=== PATIENT | male | born 1960 | race American Indian/Alaskan Native ===

== ENCOUNTER 2016-08-30 01:38 | Emergency (ER) | payer SELFPAY ==
[2016-08-30 02:52] LABS: Hematocrit 39.9 % (35.5-45.6); Mean Corpuscular HGB Conc 33 % (32-34); Mean Corpuscular Hemoglobin 28 pg (28-32); Mean Corpuscular Volume 85 fl (84-94); Platelet Count 251 K/mm3 (140-440); White Blood Count 4.6 K/mm3 (4.5-11.0)
[2016-08-30 03:03] LABS: Anion Gap 21 mmol/L; Blood Urea Nitrogen 7 mg/dL (9-20); Calcium 8.4 mg/dL (8.4-10.2); Carbon Dioxide 21 mmol/L (22-30); Chloride 100.2 mmol/L (98-107); Glucose 264 mg/dL (75-100); Potassium 3.9 mmol/L (3.6-5.0); Sodium 138 mmol/L (137-145)
[2016-08-30 03:17] LABS: Bilirubin,Urine NEG (Negative); Blood,Urine NEG (Negative); Ketones,Urine NEG (Negative); Leukocyte Esterase,Urine NEG (Negative); Nitrite,Urine NEG (Negative); Protein,Urine <15 mg/dL mg/dL (Negative); Urobilinogen,Urine < 2.0 mg/dL (<2.0)
--- NOTE | 2016-08-30 03:23 | Emergency Department Report ---
HPI - General Chief Complaint: Syncope Time Seen by Provider: 08/30/16 02:47 - HPI HPI: This is a 56-year-old Afro-[place] male presents the emergency department from work after having a syncopal episode. 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 Patient did hit his head on a concrete floor. The patient does not recall the event. It is unknown how long the patient was unconscious. However the patient currently has no focal complaints. He has a history of diabetes, hypertension. He denies any tobacco or illicit drug use or abuse. He did not take anything and was not given anything for his symptoms prior to presentation. No recent travel or sick contacts at home. He does not have a primary care doctor. ED Past Medical Hx - Past Medical History Previous Medical History?: Yes Hx Hypertension: Yes Hx Diabetes: Yes - Surgical History Past Surgical History?: No - Social History Smoking Status: Never Smoker Substance Use Type: Alcohol - Medications Home Medications: Home Medications Medication Instructions Recorded Confirmed Last Taken Type Allopurinol [Zyloprim] 300 mg PO QDAY 08/30/16 08/30/16 Unknown History Naproxen [Naprosyn] 500 mg PO BID 08/30/16 08/30/16 Unknown History metFORMIN [Glucophage] 500 mg PO BID 08/30/16 08/30/16 Unknown History ED Review of Systems ROS: Stated complaint: SYNCOPE Other details as noted in HPI Comment: All other systems reviewed and negative Constitutional: denies: chills, fever Eyes: denies: eye pain, eye discharge, vision change ENT: denies: ear pain, throat pain Respiratory: denies: cough, shortness of breath, wheezing Cardiovascular: syncope. denies: chest pain Gastrointestinal: denies: abdominal pain, nausea, diarrhea Genitourinary: denies: urgency, dysuria Musculoskeletal: denies: back pain, joint swelling, arthralgia Skin: denies: rash, lesions Neurological: denies: headache, weakness, paresthesias Physical Exam - Physical Exam Vital Signs: Vital Signs 08/30/16 08/30/16 01:38 02:40 Temperature 98.5 F Pulse Rate 84 Respiratory 15 20 Rate Blood Pressure 170/96 [Left] O2 Sat by Pulse 95 98 Oximetry Physical Exam: GENERAL: The patient is well-developed well-nourished. HEENT: Normocephalic. Atraumatic. Extraocular motions are intact. Patient has moist mucous membranes. Pupils equal reactive to light bilaterally. No nystagmus. NECK: Supple. Trachea is midline. CHEST/LUNGS: Clear to auscultation. There is no respiratory distress noted. HEART/CARDIOVASCULAR: Regular. There is no tachycardia. There is no gallop rub or murmur. ABDOMEN: Abdomen is soft, nontender. Patient has normal bowel sounds. There is no abdominal distention. SKIN: Skin is warm and dry. NEURO: The patient is awake, alert, and oriented. The patient is cooperative. The patient has no focal neurologic deficits. The patient has normal speech. Cranial nerves II through XII grossly intact. MUSCULOSKELETAL: There is no tenderness or deformity. There is no limitation range of motion. There is no evidence of acute injury. Muscle strength 5 out of 5 upper and lower extremity bilaterally. ED Course Vital Signs 08/30/16 08/30/16 01:38 02:40 Temperature 98.5 F Pulse Rate 84 Respiratory 15 20 Rate Blood Pressure 170/96 [Left] O2 Sat by Pulse 95 98 Oximetry ED Medical Decision Making - Lab Data Result diagrams: 08/30/16 02:30 08/30/16 02:30 - EKG Data -: EKG Interpreted by Nc EKG shows normal: sinus rhythm, axis, intervals, QRS complexes, ST-T waves Rate: normal - EKG Data When compared to previous EKG there are: previous EKG unavailable Interpretation: normal EKG - Radiology Data Radiology results: report reviewed MCT of the head does not show any acute process including no hemorrhage, mass, shift, diffuse edema or skull fracture. - Medical Decision Making 56-year-old male presents the emergency department after a syncopal episode at work earlier in the day. Patient is been awake and alert throughout his ED course without any physical complaints. Vital signs stable throughout his ED course. Labs are mostly unremarkable other than some hyperglycemia but the patient's son appeared to be in DKA or HHNK. Patient had some alcohol on board at 0.08 but that is basically within the legal limit and the patient is now sober. EKG does not show any signs of ST elevation [place] or dysrhythmia. CT of the head does not show any bleed, shift, mass or any acute process. Patient was reevaluated multiple times for multiple hours and remained stable. He has been seen ambulatory in the emergency department and appears stable and doing so. He'll be discharged home to follow up with primary care. He will return to the ER for any worsening of symptoms or any acute distress. - Differential Diagnosis vasovagal, orthostatic hypotension, intoxication, TIA Critical Care Time: No Critical care attestation.: If time is entered above; I have spent that time in minutes in the direct care of this critically ill patient, excluding procedure time. ED Disposition Clinical Impression: Hyperglycemia Hypertension Qualifiers: Hypertension type: essential hypertension Qualified Code(s): I10 - Essential ( primary) hypertension Syncope Qualifiers: Syncope type: unspecified Qualified Code(s): R55 - Syncope and collapse Disposition: DISCHARGED TO HOME OR SELFCARE Is pt being admited?: No Condition: Stable Instructions: Hypertension (ED), Syncope (ED), Diabetic Hyperglycemia (ED) Additional Instructions: Please follow-up with your primary care doctor in the next few days. Return to the emergency department with any further episodes of passing out, or any acute distress. Referrals: PRIMARY MD MALLORIE [Primary Care Provider] - 3-5 Days BRIDGETTE FISHER MD [Staff Physician] - 3-5 Days [facility] [Outside] - 3-5 Days Time of Disposition: 06:16
[2016-08-30] MEDS ORDERED: CATAPRES PO ONE (03:29)
[2016-08-30 04:01] LABS: Anisocytosis 1+; Basophils % (Manual) 0 % (0.0-1.8); Blastocytes % (Manual) 0 %; Diff Status Complete; Eosinophils % (Manual) 0 % (0.0-4.3); Stomatocytes Few; Target Cells Rare
[2016-08-30 05:54] VITALS: BP 151/91
--- NOTE | 2016-08-30 06:03 | Cat Scan Report ---
FINAL REPORT EXAM: CT HEAD/BRAIN WO CON HISTORY: Fell and hit head TECHNIQUE: CT of the head was performed. No intravenous contrast was administered. PRIORS: None. FINDINGS: There is no evidence of intracranial hemorrhage. There is no edema, mass effect or midline shift. There are no abnormal extra-axial fluid collections. The ventricles are appropriate for brain volume. There is no skull fracture seen. The visualized aspects of the sinuses are clear. IMPRESSION: There is no acute intracranial abnormality identified.
== END 2016-08-30 06:43 | disposition home or self-care (01) ==
LOC: ED 01:38
DX: E11.65 Type 2 diabetes mellitus with hyperglycemia (principal); I10 Essential (primary) hypertension; R55 Syncope and collapse
CPT/HCPCS: 36415; 70450; 80048; 81001; 84484; 85007; 85025; 93005; 93010; 99285; G0480; 80320

== ENCOUNTER 2016-11-15 20:49 | Emergency (ER) | payer SELFPAY ==
[2016-11-15 21:12] VITALS: BP 137/77
[2016-11-15 21:32] LABS: Hematocrit 37.1 % (35.5-45.6); Hemoglobin 12.1 gm/dl (11.8-15.2); Mean Corpuscular HGB Conc 33 % (32-34); Mean Corpuscular Hemoglobin 27 pg (28-32); Mean Corpuscular Volume 83 fl (84-94); Platelet Count 295 K/mm3 (140-440); Red Blood Count 4.47 M/mm3 (3.65-5.03); Red Cell Distribution Width 13.7 % (13.2-15.2); White Blood Count 9.5 K/mm3 (4.5-11.0)
[2016-11-15 21:48] LABS: Anion Gap 18 mmol/L; BUN/Creatinine Ratio 8.88; Blood Urea Nitrogen 8 mg/dL (9-20); Calcium 8.4 mg/dL (8.4-10.2); Carbon Dioxide 27 mmol/L (22-30); Chloride 90.8 mmol/L (98-107); Glucose 244 mg/dL (75-100); Potassium 3.1 mmol/L (3.6-5.0); Sodium 133 mmol/L (137-145)
[2016-11-15 22:31] LABS: Basophils % (Manual) 0 % (0.0-1.8); Blastocytes % (Manual) 0 %; Eosinophils % (Manual) 0 % (0.0-4.3)
[2016-11-15 22:32] LABS: Anisocytosis 1+; Diff Status Complete; Hypochromasia 1+; Platelet Estimate Consistent w Auto
--- NOTE | 2016-11-20 11:05 | ED Elopement Review ---
ED Pt Elopement review - Results review Lab results: Laboratory Tests 11/15/16 11/15/16 11/15/16 21:09 21:17 21:17 WBC 9.5 RBC 4.47 Hgb 12.1 Hct 37.1 MCV 83 L MCH 27 L MCHC 33 RDW 13.7 Plt Count 295 [place] % (Auto) Professor Of Architecture Add Manual Diff Complete Total Counted 100 Seg Neuts % (Manual) 45.0 Band Neutrophils % 22.0 Lymphocytes % (Manual) 17.0 Reactive Lymphs % (Man) 1.0 Monocytes % (Manual) 15.0 H Eosinophils % (Manual) 0 Basophils % (Manual) 0 Metamyelocytes % 0 Myelocytes % 0 Promyelocytes % 0 Blast Cells % 0 Nucleated RBC % Not Reportable Seg Neutrophils # Man 4.3 Band Neutrophils # 2.1 Lymphocytes # (Manual) 1.6 Abs React Lymphs (Man) 0.1 Monocytes # (Manual) 1.4 H Eosinophils # (Manual) 0.0 Basophils # (Manual) 0.0 Metamyelocytes # 0.0 Myelocytes # 0.0 Promyelocytes # 0.0 Blast Cells # 0.0 WBC Morphology Not Reportable Hypersegmented Neuts Not Reportable Hyposegmented Neuts Not Reportable Hypogranular Neuts Not Reportable Smudge Cells Not Reportable Toxic Granulation Not Reportable Toxic Vacuolation Not Reportable Dohle Bodies Not Reportable Pelger-Huet Anomaly Not Reportable Jordan Rods Not Reportable Platelet Estimate Consistent w auto Clumped Platelets Not Reportable Plt Clumps, EDTA Not Reportable Large Platelets Not Reportable Giant Platelets Not Reportable Platelet Satelliting Not Reportable Plt Morphology Comment Not Reportable RBC Morphology Not Reportable Dimorphic RBCs Not Reportable Polychromasia Not Reportable Hypochromasia 1+ Poikilocytosis Not Reportable Anisocytosis 1+ Microcytosis Not Reportable Macrocytosis Not Reportable Spherocytes Not Reportable Pappenheimer Bodies Not Reportable Sickle Cells Not Reportable Target Cells Not Reportable Tear Drop Cells Not Reportable Ovalocytes Not Reportable Helmet Cells Not Reportable [place] Bodies Not Reportable [place] Rings Not Reportable Kayla Cells Not Reportable Bite Cells Not Reportable Crenated Cell Not Reportable Elliptocytes Not Reportable Acanthocytes (Spur) Not Reportable Rouleaux Not Reportable Hemoglobin C Crystals Not Reportable Schistocytes Not Reportable Malaria parasites Not Reportable Blair Bodies Not Reportable Hem Pathologist Commnt No Sodium 133 L Potassium 3.1 L Chloride 90.8 L Carbon Dioxide 27 Anion Gap 18 BUN 8 L Creatinine 0.9 Estimated GFR > 60 BUN/Creatinine Ratio 8.88 Glucose 244 H POC Glucose 263 H Calcium 8.4 - Call Back decision Pt Call Back Decision: No action required
== END 2016-11-15 21:30 | disposition left against medical advice (07) ==
LOC: ED 20:49
DX: R11.2 Nausea with vomiting, unspecified (principal); R19.7 Diarrhea, unspecified; Z53.21 Procedure and treatment not carried out due to patient leaving prior to being seen by health care provider
CPT/HCPCS: 36415; 80048; 82962; 85007; 85025

== ENCOUNTER 2019-01-14 00:27 | Emergency (ER) | payer SELFPAY ==
[2019-01-14] MEDS ORDERED: NACL 0.9% 1000 ML 1,000 ML IV ONE (01:11)
--- NOTE | 2019-01-14 01:13 | Emergency Department Report ---
ED General Adult HPI - General Chief complaint: Syncope Stated complaint: AMS Time Seen by Provider: 01/14/19 01:01 Source: patient, EMS (ems notes not available at time of chart dictation), RN notes reviewed Mode of arrival: Stretcher Limitations: No Limitations - History of Present Illness Initial comments: This is a pleasant 58-year-old gentleman. The patient is not known to this provider previously. The patient states his primary care doctor is Dr. Mehta. Reports a past medical history of gout and diabetes. The patient was brought to the hospital by EMS for complaint of syncope. Patient states he was outside, doing heavy lifting for work, which he typically does not do, in the warm weather, when he had a painless unprovoked episode of loss of consciousness. Prior to the event, he denied chest pain, shortness of breath, extremity w eakness, numbness and all symptoms. He is now back to his baseline. The patient denies DVT, pulmonary embolus risk factors. He denies all complaints, and he denies physical pain. He states "I think I just got overheated working outside." He further reiterates that he typically does not work in the outdoors in the extreme heat. -: Sudden Severity scale (0 -10): 0 Consistency: now resolved Improves with: none Worsens with: none Associated Symptoms: denies other symptoms, syncope - Related Data Home Medications Medication Instructions Recorded Confirmed Last Taken Allopurinol [Zyloprim] 300 mg PO QDAY 08/30/16 08/30/16 Unknown Naproxen [Naprosyn] 500 mg PO BID 08/30/16 08/30/16 Unknown metFORMIN [Glucophage] 500 mg PO BID 08/30/16 08/30/16 Unknown Allergies Allergy/AdvReac Type Severity Reaction Status Date / Time No Known Allergies Allergy Verified 01/14/19 03:36 ED Review of Systems ROS: Stated complaint: AMS Other details as noted in HPI Constitutional: denies: fever, malaise ENT: denies: epistaxis Respiratory: denies: cough Cardiovascular: syncope. denies: chest pain Gastrointestinal: denies: abdominal pain Genitourinary: denies: dysuria Musculoskeletal: denies: back pain Skin: denies: lesions Neurological: denies: headache, weakness ED Past Medical Hx - Past Medical History Previous Medical History?: Yes Hx Hypertension: Yes Hx Heart Attack/AMI: Yes (2016) Hx Diabetes: Yes Hx of Cancer: Yes (Prostate and pancreatic) - Surgical History Past Surgical History?: No - Social History Smoking Status: Former Smoker - Medications Home Medications: Home Medications Medication Instructions Recorded Confirmed Last Taken Type Allopurinol [Zyloprim] 300 mg PO QDAY 08/30/16 08/30/16 Unknown History Naproxen [Naprosyn] 500 mg PO BID 08/30/16 08/30/16 Unknown History metFORMIN [Glucophage] 500 mg PO BID 08/30/16 08/30/16 Unknown History ED Physical Exam - General Limitations: No Limitations General appearance: alert, in no apparent distress - Head Head exam: Present: atraumatic, normocephalic - Eye Eye exam: Present: normal appearance, PERRL, EOMI, other (visual acuity intact to finger counting, color perception, reading at a close distance). Absent: nystagmus - ENT ENT exam: Present: normal exam, normal orophraynx, mucous membranes moist, normal external ear exam - Neck Neck exam: Present: normal inspection, full ROM. Absent: tenderness, meningismus - Respiratory Respiratory exam: Present: normal lung sounds bilaterally. Absent: respiratory distress, wheezes, rales, rhonchi, stridor, chest wall tenderness, accessory muscle use, decreased breath sounds, prolonged expiratory - Cardiovascular Cardiovascular Exam: Present: regular rate, normal rhythm, normal heart sounds. Absent: bradycardia, tachycardia, irregular rhythm, systolic murmur, diastolic murmur, rubs, gallop - GI/Abdominal GI/Abdominal exam: Present: soft. Absent: distended, tenderness, guarding, rebound, rigid, pulsatile mass - Rectal Rectal exam: Present: deferred - Extremities Exam Extremities exam: Present: normal inspection, full ROM, other (2+ pulses noted in the bilateral upper, lower extremities. Compartments soft. No long bony tenderness. The pelvis is stable.). Absent: tenderness, pedal edema, joint swelling, calf tenderness - Back Exam Back exam: Present: normal inspection, full ROM. Absent: tenderness, CVA tenderness (R), CVA tenderness (L), paraspinal tenderness, vertebral tenderness - Neurological Exam Neurological exam: Present: alert, oriented X3, normal gait (there is no past pointing. There is normal [id number]. There is no pronator drift. There is negative Romberg examination.), other (Extraocular movements intact. Tongue midline. No facial droop. Facial sensation intact to light touch in the V1, V2, V3 distribution bilaterally. 5 and 5 strength in 4 extremities.. Sensation is intact to light touch in 4 extremities.). Absent: motor sensory deficit - Psychiatric Psychiatric exam: Present: normal affect, normal mood - Skin Skin exam: Present: warm, dry, intact, normal color. Absent: rash ED Course Vital Signs 01/14/19 01/14/19 01/14/19 00:50 00:52 01:00 Temperature 98.1 F Pulse Rate 94 H 92 H 99 H Pulse Rate [ Lying] Pulse Rate [ Sitting] Pulse Rate [ Standing] Respiratory 16 22 19 Rate Blood Pressure 145/89 Blood Pressure 143/82 [Left] Blood Pressure [Lying] Blood Pressure [Sitting] Blood Pressure [Standing] O2 Sat by Pulse 98 98 97 Oximetry 01/14/19 01/14/19 01/14/19 01:16 01:30 01:46 Temperature Pulse Rate 92 H 88 87 Pulse Rate [ Lying] Pulse Rate [ Sitting] Pulse Rate [ Standing] Respiratory 16 17 20 Rate Blood Pressure 145/89 141/80 145/89 Blood Pressure [Left] Blood Pressure [Lying] Blood Pressure [Sitting] Blood Pressure [Standing] O2 Sat by Pulse 98 94 98 Oximetry 01/14/19 01/14/19 01/14/19 01:49 02:00 02:16 Temperature Pulse Rate 86 78 Pulse Rate [ 105 H Lying] Pulse Rate [ 95 H Sitting] Pulse Rate [ 97 H Standing] Respiratory 24 18 Rate Blood Pressure Blood Pressure [Left] Blood Pressure 158/85 [Lying] Blood Pressure 155/79 [Sitting] Blood Pressure 134/79 [Standing] O2 Sat by Pulse 97 96 Oximetry - Reevaluation(s) Reevaluation #1: 01/14/19 03:29 Differential diagnosis, including but not limited to: Orthostasis, vagal event, pulmonary embolism, intracranial hemorrhage, structural cardiac disease, exhaustion, acute coronary syndrome Assessment and plan: 58-year-old gentleman who reports working outside in the hot weather, with an unprovoked episode of syncope. The patient is afebrile with reassuring vital signs, clinically sober and walks with a steady gait. D- dimer negative, EKG unremarkable, troponin negative, felt to have slightly e levated blood alcohol level, however, clinically sober at this time, with no midline cervical spine pain, tenderness or distracting injuries. Patient has been in the ER for almost 3 hours without recurrent episode of syncope. Repeat troponin, repeat EKG pending, he continues to walk with a steady gait and be sober. iF remaining laboratory and screening tests are unremarkable, we'll chromosomal disorders counselor the patient to avoid alcohol consumption, not drive for 6 months, and to follow up with outpatient primary care doctor or lead java j2ee developer. Reevaluation #2: 01/14/19 04:50 Troponin negative 2. Patient walking with a steady gait. He also has a friend/family member in the ER to come by and pick him up. Patient has been here for 4.5 hours without episode of recurrent syncope. Patient suitable for discharge at this point in time. ED Medical Decision Making - Lab Data Result diagrams: 01/14/19 01:23 01/14/19 01:23 Vital Signs 01/14/19 01/14/19 01/14/19 00:50 00:52 01:00 Temperature 98.1 F Pulse Rate 94 H 92 H 99 H Pulse Rate [ Lying] Pulse Rate [ Sitting] Pulse Rate [ Standing] Respiratory 16 22 19 Rate Blood Pressure 145/89 Blood Pressure 143/82 [Left] Blood Pressure [Lying] Blood Pressure [Sitting] Blood Pressure [Standing] O2 Sat by Pulse 98 98 97 Oximetry 01/14/19 01/14/19 01/14/19 01:16 01:30 01:46 Temperature Pulse Rate 92 H 88 87 Pulse Rate [ Lying] Pulse Rate [ Sitting] Pulse Rate [ Standing] Respiratory 16 17 20 Rate Blood Pressure 145/89 141/80 145/89 Blood Pressure [Left] Blood Pressure [Lying] Blood Pressure [Sitting] Blood Pressure [Standing] O2 Sat by Pulse 98 94 98 Oximetry 01/14/19 01/14/19 01/14/19 01:49 02:00 02:16 Temperature Pulse Rate 86 78 Pulse Rate [ 105 H Lying] Pulse Rate [ 95 H Sitting] Pulse Rate [ 97 H Standing] Respiratory 24 18 Rate Blood Pressure Blood Pressure [Left] Blood Pressure 158/85 [Lying] Blood Pressure 155/79 [Sitting] Blood Pressure 134/79 [Standing] O2 Sat by Pulse 97 96 Oximetry Lab Results 01/14/19 01/14/19 01/14/19 Range/Units 01:19 01:23 01:23 WBC 7.4 (4.5-11.0) K/mm3 RBC 4.03 (3.65-5.03) M/mm3 Hgb 11.8 (11.8-15.2) gm/dl Hct 34.6 L (35.5-45.6) % MCV 86 (84-94) fl MCH 29 (28-32) pg MCHC 34 (32-34) % RDW 13.9 (13.2-15.2) % Plt Count 267 (140-440) K/mm3 Lymph % (Auto) 32.5 (13.4-35.0) % Kinney % (Auto) 12.9 H (0.0-7.3) % Eos % (Auto) 1.6 (0.0-4.3) % Baso % (Auto) 1.8 (0.0-1.8) % Lymph # 2.4 (1.2-5.4) K/mm3 Kinney # 1.0 H (0.0-0.8) K/mm3 Eos # 0.1 (0.0-0.4) K/mm3 Baso # 0.1 (0.0-0.1) K/mm3 Seg Neutrophils % 51.2 (40.0-70.0) % Seg Neutrophils # 3.8 (1.8-7.7) K/mm3 PT (12.2-14.9) Sec. INR (0.87-1.13) D-Dimer (0-234) ng/mlDDU Sodium 134 L (137-145) mmol/L Potassium 3.4 L (3.6-5.0) mmol/L Chloride 98.8 (98-107) mmol/L Carbon Dioxide 21 L (22-30) mmol/L Anion Gap 18 mmol/L BUN 7 L (9-20) mg/dL Creatinine 0.7 L (0.8-1.5) mg/dL Estimated GFR > 60 ml/min BUN/Creatinine Ratio 10 % Glucose 278 H (75-100) mg/dL POC Glucose 285 H (70-105) Calcium 7.7 L (8.4-10.2) mg/dL Magnesium (1.7-2.3) mg/dL Total Creatine Kinase (55-170) units/L Troponin T (0.00-0.029) ng/mL Urine Color (Yellow) Urine Turbidity (Clear) Urine pH (5.0-7.0) Ur Specific Pinch (1.003-1.030) Urine Protein (Negative) mg/dL Urine Glucose (UA) (Negative) mg/dL Urine Ketones (Negative) mg/dL Urine Blood (Negative) Urine Nitrite (Negative) Urine Bilirubin (Negative) Urine Urobilinogen (<2.0) mg/dL Ur Leukocyte Esterase (Negative) Urine WBC (Auto) (0.0-6.0) /HPF Urine RBC (Auto) (0.0-6.0) /HPF U Epithel Cells (Auto) (0-13.0) /HPF Salicylates (2.8-20.0) mg/dL Urine Opiates Screen Urine Methadone Screen Acetaminophen (10.0-30.0) ug/mL Ur Barbiturates Screen Ur Phencyclidine Scrn Ur Amphetamines Screen U Benzodiazepines Scrn Urine Cocaine Screen U Marijuana (THC) Screen Drugs of Abuse Note Plasma/Serum Alcohol (0-0.07) % 01/14/19 01/14/19 01/14/19 Range/Units 01:23 01:23 01:23 WBC (4.5-11.0) K/mm3 RBC (3.65-5.03) M/mm3 Hgb (11.8-15.2) gm/dl Hct (35.5-45.6) % MCV (84-94) fl MCH (28-32) pg MCHC (32-34) % RDW (13.2-15.2) % Plt Count (140-440) K/mm3 Lymph % (Auto) (13.4-35.0) % Kinney % (Auto) (0.0-7.3) % Eos % (Auto) (0.0-4.3) % Baso % (Auto) (0.0-1.8) % Lymph # (1.2-5.4) K/mm3 Kinney # (0.0-0.8) K/mm3 Eos # (0.0-0.4) K/mm3 Baso # (0.0-0.1) K/mm3 Seg Neutrophils % (40.0-70.0) % Seg Neutrophils # (1.8-7.7) K/mm3 PT 13.4 (12.2-14.9) Sec. INR 1.05 (0.87-1.13) D-Dimer 204.08 (0-234) ng/mlDDU Sodium (137-145) mmol/L Potassium (3.6-5.0) mmol/L Chloride (98-107) mmol/L Carbon Dioxide (22-30) mmol/L Anion Gap mmol/L BUN (9-20) mg/dL Creatinine (0.8-1.5) mg/dL Estimated GFR ml/min BUN/Creatinine Ratio % Glucose (75-100) mg/dL POC Glucose (70-105) Calcium (8.4-10.2) mg/dL Magnesium 1.90 (1.7-2.3) mg/dL Total Creatine Kinase 166 (55-170) units/L Troponin T < 0.010 (0.00-0.029) ng/mL Urine Color (Yellow) Urine Turbidity (Clear) Urine pH (5.0-7.0) Ur Specific Pinch (1.003-1.030) Urine Protein (Negative) mg/dL Urine Glucose (UA) (Negative) mg/dL Urine Ketones (Negative) mg/dL Urine Blood (Negative) Urine Nitrite (Negative) Urine Bilirubin (Negative) Urine Urobilinogen (<2.0) mg/dL Ur Leukocyte Esterase (Negative) Urine WBC (Auto) (0.0-6.0) /HPF Urine RBC (Auto) (0.0-6.0) /HPF U Epithel Cells (Auto) (0-13.0) /HPF Salicylates < 0.3 L (2.8-20.0) mg/dL Urine Opiates Screen Urine Methadone Screen Acetaminophen (10.0-30.0) ug/mL Ur Barbiturates Screen Ur Phencyclidine Scrn Ur Amphetamines Screen U Benzodiazepines Scrn Urine Cocaine Screen U Marijuana (THC) Screen Drugs of Abuse Note Plasma/Serum Alcohol (0-0.07) % 01/14/19 01/14/19 01/14/19 Range/Units 01:23 01:23 01:56 WBC (4.5-11.0) K/mm3 RBC (3.65-5.03) M/mm3 Hgb (11.8-15.2) gm/dl Hct (35.5-45.6) % MCV (84-94) fl MCH (28-32) pg MCHC (32-34) % RDW (13.2-15.2) % Plt Count (140-440) K/mm3 Lymph % (Auto) (13.4-35.0) % Kinney % (Auto) (0.0-7.3) % Eos % (Auto) (0.0-4.3) % Baso % (Auto) (0.0-1.8) % Lymph # (1.2-5.4) K/mm3 Kinney # (0.0-0.8) K/mm3 Eos # (0.0-0.4) K/mm3 Baso # (0.0-0.1) K/mm3 Seg Neutrophils % (40.0-70.0) % Seg Neutrophils # (1.8-7.7) K/mm3 PT (12.2-14.9) Sec. INR (0.87-1.13) D-Dimer (0-234) ng/mlDDU Sodium (137-145) mmol/L Potassium (3.6-5.0) mmol/L Chloride (98-107) mmol/L Carbon Dioxide (22-30) mmol/L Anion Gap mmol/L BUN (9-20) mg/dL Creatinine (0.8-1.5) mg/dL Estimated GFR ml/min BUN/Creatinine Ratio % Glucose (75-100) mg/dL POC Glucose (70-105) Calcium (8.4-10.2) mg/dL Magnesium (1.7-2.3) mg/dL Total Creatine Kinase (55-170) units/L Troponin T (0.00-0.029) ng/mL Urine Color Straw (Yellow) Urine Turbidity Clear (Clear) Urine pH 5.0 (5.0-7.0) Ur Specific Pinch 1.010 (1.003-1.030) Urine Protein <15 mg/dl (Negative) mg/dL Urine Glucose (UA) >=500 (Negative) mg/dL Urine Ketones Neg (Negative) mg/dL Urine Blood Neg (Negative) Urine Nitrite Neg (Negative) Urine Bilirubin Neg (Negative) Urine Urobilinogen < 2.0 (<2.0) mg/dL Ur Leukocyte Esterase Neg (Negative) Urine WBC (Auto) < 1.0 (0.0-6.0) /HPF Urine RBC (Auto) < 1.0 (0.0-6.0) /HPF U Epithel Cells (Auto) < 1.0 (0-13.0) /HPF Salicylates (2.8-20.0) mg/dL Urine Opiates Screen Urine Methadone Screen Acetaminophen < 5.0 L (10.0-30.0) ug/mL Ur Barbiturates Screen Ur Phencyclidine Scrn Ur Amphetamines Screen U Benzodiazepines Scrn Urine Cocaine Screen U Marijuana (THC) Screen Drugs of Abuse Note Plasma/Serum Alcohol 0.09 H (0-0.07) % 01/14/19 Range/Units 01:56 WBC (4.5-11.0) K/mm3 RBC (3.65-5.03) M/mm3 Hgb (11.8-15.2) gm/dl Hct (35.5-45.6) % MCV (84-94) fl MCH (28-32) pg MCHC (32-34) % RDW (13.2-15.2) % Plt Count (140-440) K/mm3 Lymph % (Auto) (13.4-35.0) % Kinney % (Auto) (0.0-7.3) % Eos % (Auto) (0.0-4.3) % Baso % (Auto) (0.0-1.8) % Lymph # (1.2-5.4) K/mm3 Kinney # (0.0-0.8) K/mm3 Eos # (0.0-0.4) K/mm3 Baso # (0.0-0.1) K/mm3 Seg Neutrophils % (40.0-70.0) % Seg Neutrophils # (1.8-7.7) K/mm3 PT (12.2-14.9) Sec. INR (0.87-1.13) D-Dimer (0-234) ng/mlDDU Sodium (137-145) mmol/L Potassium (3.6-5.0) mmol/L Chloride (98-107) mmol/L Carbon Dioxide (22-30) mmol/L Anion Gap mmol/L BUN (9-20) mg/dL Creatinine (0.8-1.5) mg/dL Estimated GFR ml/min BUN/Creatinine Ratio % Glucose (75-100) mg/dL POC Glucose (70-105) Calcium (8.4-10.2) mg/dL Magnesium (1.7-2.3) mg/dL Total Creatine Kinase (55-170) units/L Troponin T (0.00-0.029) ng/mL Urine Color (Yellow) Urine Turbidity (Clear) Urine pH (5.0-7.0) Ur Specific Pinch (1.003-1.030) Urine Protein (Negative) mg/dL Urine Glucose (UA) (Negative) mg/dL Urine Ketones (Negative) mg/dL Urine Blood (Negative) Urine Nitrite (Negative) Urine Bilirubin (Negative) Urine Urobilinogen (<2.0) mg/dL Ur Leukocyte Esterase (Negative) Urine WBC (Auto) (0.0-6.0) /HPF Urine RBC (Auto) (0.0-6.0) /HPF U Epithel Cells (Auto) (0-13.0) /HPF Salicylates (2.8-20.0) mg/dL Urine Opiates Screen Presumptive negative Urine Methadone Screen Presumptive negative Acetaminophen (10.0-30.0) ug/mL Ur Barbiturates Screen Presumptive negative Ur Phencyclidine Scrn Presumptive negative Ur Amphetamines Screen Presumptive negative U Benzodiazepines Scrn Presumptive negative Urine Cocaine Screen Presumptive negative U Marijuana (THC) Screen Presumptive negative Drugs of Abuse Note Disclamer Plasma/Serum Alcohol (0-0.07) % - EKG Data -: EKG Interpreted by [place] EKG shows normal: sinus rhythm Rate: normal - EKG Data When compared to previous EKG there are: previous EKG unavailable 01/14/19 03:31 EKG shows sinus rhythm, 89 bpm, normal axis, QTC 460 ms, no endorsement of chest pain, the EKG is not consistent with ST elevation myocardial infarction, the EKG is unchanged from prior EKG from 08/30/2016. - Radiology Data Radiology results: report reviewed, image reviewed Noncontrast CT scan of the brain is negative for acute disease Critical care attestation.: If time is entered above; I have spent that time in minutes in the direct care of this critically ill patient, excluding procedure time. ED Disposition Clinical Impression: History of syncope Disposition: TO HOME OR SELFCARE Is pt being admited?: No Does the pt Need Aspirin: No Condition: Good Instructions: Heat Exhaustion (ED), Syncope (ED) Additional Instructions: Do not drive or operate motor vehicles for the next 6 months. Patient will need to follow-up with the primary care doctor or lead java j2ee developer for clearance to operate motor vehicles. Recommend patient consumed 4-6 cups of water per day, and recommend that patient avoid lifting or working in the extreme heat. In addition, laboratory studies demonstrate the presence of blood alcohol, therefore, recommend patient moderate or discontinue consumption of alcohol while at work, and while in the extreme he at. Return to the emergency room right away with new, worsening or different symptoms, projectile vomiting, change in mental status, confusion, inability to tolerate liquid feeds, new, worsening or different symptoms not present on the initial emergency room evaluation. Referrals: HOMER CANTU MD [Staff Physician] - 3-5 Days KAVITA JAVIER MD [Staff Physician] - 3-5 Days [facility] [Provider Group] - 3-5 Days
[2019-01-14 01:38] LABS: Basophils # (Auto) 0.1 K/mm3 (0.0-0.1); Basophils % (Auto) 1.8 % (0.0-1.8); Eosinophils # (Auto) 0.1 K/mm3 (0.0-0.4); Eosinophils % (Auto) 1.6 % (0.0-4.3); Hematocrit 34.6 % (35.5-45.6); Hemoglobin 11.8 gm/dl (11.8-15.2); Lymphocytes # (Auto) 2.4 K/mm3 (1.2-5.4); Lymphocytes % (Auto) 32.5 % (13.4-35.0); Mean Corpuscular HGB Conc 34 % (32-34); Mean Corpuscular Volume 86 fl (84-94); Monocytes % (Auto) 12.9 % (0.0-7.3); Platelet Count 267 K/mm3 (140-440); Red Blood Count 4.03 M/mm3 (3.65-5.03); Red Cell Distribution Width 13.9 % (13.2-15.2)
[2019-01-14 01:49] LABS: INR 1.05 (0.87-1.13)
[2019-01-14 01:59] LABS: BUN/Creatinine Ratio 10; Blood Urea Nitrogen 7 mg/dL (9-20); Calcium 7.7 mg/dL (8.4-10.2); Hemolysis Index 24
[2019-01-14 02:07] LABS: Bilirubin,Urine NEG (Negative); Blood,Urine NEG (Negative); Color,Urine Straw (Yellow); Protein,Urine <15 mg/dL mg/dL (Negative); RBC,Urine < 1.0 /HPF (0.0-6.0); Urobilinogen,Urine < 2.0 mg/dL (<2.0); WBC,Urine < 1.0 /HPF (0.0-6.0)
[2019-01-14 02:15] LABS: Amphetamine Screen,Urine PRESUMPTIVE NEGATIVE; Benzodiazepines Screen,Urine PRESUMPTIVE NEGATIVE; Cannabinoid Screen,Urine PRESUMPTIVE NEGATIVE; Cocaine Screen,Urine PRESUMPTIVE NEGATIVE; Methadone Screen,Urine PRESUMPTIVE NEGATIVE; Opiate Screen,Urine PRESUMPTIVE NEGATIVE
[2019-01-14] MEDS ORDERED: TUMS PO ONE (03:19)
[2019-01-14] MEDS ORDERED: K-DUR PO ONE (03:19)
--- NOTE | 2019-01-14 03:26 | Cat Scan Report ---
CT head/brain wo con INDICATION / CLINICAL INFORMATION: DIABETIC PATIENT, SYNCOPE, FALL. TECHNIQUE: All CT scans at this location are performed using CT dose reduction for ALARA by means of automated e xposure control. COMPARISON: 08/30/2016. FINDINGS: The ventricular system is normal in size and configuration. No focal lesion or mass effect is seen. T here is no evidence of intracranial hemorrhage or major vessel occlusion. The visualized paranasal sinuses and mastoid air cells are clear. The calvarium is intact. IMPRESSION: No acute abnormality or significant change. Signer Name: Aidan Queen MD Signed: 01/14/2019 3:21 AM Workstation Name: [id number]
[2019-01-14 05:00] VITALS: BP 157/90
== END 2019-01-14 05:08 | disposition home or self-care (01) ==
LOC: ED 00:27
DX: R55 Syncope and collapse (principal); M10.9 Gout, unspecified; I10 Essential (primary) hypertension; E11.9 Type 2 diabetes mellitus without complications; Z79.84 Long term (current) use of oral hypoglycemic drugs; Z87.891 Personal history of nicotine dependence
CPT/HCPCS: 36415; 70450; 80048; 80307; 81001; 82550; 82962; 83735; 84484; 85025; 85379; 85610; 93005; 93010; 96360; 99285; J7030; 80320; G0480

== ENCOUNTER 2019-01-21 22:53 | Emergency (ER) | payer BC ==
[2019-01-21 23:46] LABS: Hematocrit 38.7 % (35.5-45.6); Hemoglobin 13.2 gm/dl (11.8-15.2); Mean Corpuscular HGB Conc 34 % (32-34); Mean Corpuscular Volume 85 fl (84-94); Platelet Count 300 K/mm3 (140-440); Red Blood Count 4.54 M/mm3 (3.65-5.03); Red Cell Distribution Width 13.8 % (13.2-15.2)
[2019-01-22 00:06] LABS: Alanine Aminotransferase 44 units/L (7-56); Albumin 4.1 g/dL (3.9-5); BUN/Creatinine Ratio 13; Blood Urea Nitrogen 9 mg/dL (9-20); Calcium 8.7 mg/dL (8.4-10.2); Hemolysis Index 9
[2019-01-22] MEDS ORDERED: ZOFRAN IV ONE (00:28)
[2019-01-22] MEDS ORDERED: NORMODYNE IV ONE (00:41)
--- NOTE | 2019-01-22 00:43 | Emergency Department Report ---
HPI - General Chief Complaint: Hyperglycemia Time Seen by Provider: 01/22/19 00:14 - HPI HPI: 58-year-old -M[place] male presents to the emergency department from home with a complaint of nausea, vomiting, diarrhea and upset stomach since the previous night, almost 24 hours. He has a history of insulin-dependent diabetes and hypertension. He has taken his insulin but has not been able to take his metformin or his blood pressure medications as he has been unable to keep anything down. No recent travel or sick contacts at home. His primary care physician is a Dr. Mehta. No known aggravating or alleviating factors. ED Past Medical Hx - Past Medical History Hx Hypertension: Yes Hx Heart Attack/AMI: Yes (2016) Hx Diabetes: Yes - Social History Smoking Status: Never Smoker Substance Use Type: None - Medications Home Medications: Home Medications Medication Instructions Recorded Confirmed Last Taken Type Allopurinol [Zyloprim] 300 mg PO QDAY 08/30/16 08/30/16 Unknown History Naproxen [Naprosyn] 500 mg PO BID 08/30/16 08/30/16 Unknown History metFORMIN [Glucophage] 500 mg PO BID 08/30/16 08/30/16 Unknown History Ondansetron [Zofran Odt] 4 mg PO Q8HR PRN #14 tab.rapdis 01/22/19 Unknown Rx ED Review of Systems ROS: Stated complaint: DIABETIC/ABDOMINAL PAIN Other details as noted in HPI Comment: All other systems reviewed and negative Constitutional: denies: chills, fever Eyes: denies: eye pain, vision change ENT: denies: ear pain, throat pain Respiratory: denies: cough, shortness of breath Cardiovascular: denies: chest pain, palpitations Gastrointestinal: abdominal pain, nausea, vomiting, diarrhea Genitourinary: denies: dysuria, discharge Musculoskeletal: denies: back pain, arthralgia Skin: denies: rash, lesions Neurological: denies: headache, weakness Physical Exam - Physical Exam Vital Signs: Vital Signs 01/21/19 23:09 Temperature 99.7 F H Pulse Rate 108 H Respiratory 20 Rate Blood Pressure 190/110 O2 Sat by Pulse 97 Oximetry Physical Exam: GENERAL: The patient is well-developed well-nourished. HENT: Normocephalic. Atraumatic. Patient has moist mucous membranes. EYES: Extraocular motions are intact. NECK: Supple. Trachea is midline. CHEST/LUNGS: Clear to auscultation. There is no respiratory distress noted. HEART/CARDIOVASCULAR: Regular. There is no tachycardia. There is no murmur. ABDOMEN: Abdomen is soft. Mild upper abdominal tenderness to palpation. No guarding. Patient has normal bowel sounds. There is no abdominal distention. SKIN: Skin is warm and dry. NEURO: The patient is awake, alert, and oriented. The patient is cooperative. The patient has no focal neurologic deficits. Normal speech. MUSCULOSKELETAL: There is no tenderness or deformity. There is no limitation range of motion. There is no evidence of acute injury. ED Course Vital Signs 01/21/19 23:09 Temperature 99.7 F H Pulse Rate 108 H Respiratory 20 Rate Blood Pressure 190/110 O2 Sat by Pulse 97 Oximetry ED Medical Decision Making - Lab Data Result diagrams: 01/21/19 23:25 01/21/19 23:25 - Radiology Data Radiology results: image reviewed Abdominal x-ray shows nonspecific nonobstructive bowel gas. - Medical Decision Making This patient presents with a 24-hour history of nausea, vomiting, diarrhea and some abdominal discomfort. Patient had very elevated blood pressure at first but he admits to not taking his blood pressure medication secondary to the nausea and vomiting. He was given a single dose of labetalol and his blood pressure came down to a much more reasonable level. Overall, the patient's labs are mostly unremarkable. There is very mild hyperglycemia with a blood sugar of about 215 but no signs of diabetic ketoacidosis. Urinalysis does not show any UTI or signs of significant dehydration. The patient was given IV Zofran and reevaluated multiple times and the patient is greatly improved. He has not had any further episodes of diarrhea in the emergency department. He was able to pass an oral challenge without any return of nausea or vomiting. His abdominal pain shows nonspecific nonobstructive bowel gas. The patient appears safe for discharge home at this time. He has been given some referrals for primary care and a prescription for Zofran ODT. He will return to the ER with any worsening of his symptoms or any acute distress. - Differential Diagnosis food poisoning, pancreatitis, cholelithiasis, bowel obstruction Critical Care Time: No Critical care attestation.: If time is entered above; I have spent that time in minutes in the direct care of this critically ill patient, excluding procedure time. ED Disposition Clinical Impression: Abdominal pain Qualifiers: Abdominal location: generalized Qualified Code(s): R10.84 - Generalized abdominal pain Nausea and vomiting Qualifiers: Vomiting type: unspecified Vomiting Intractability: unspecified Qualified Code(s): R11.2 - Nausea with vomiting, unspecified Diarrhea Qualifiers: Diarrhea type: unspecified type Qualified Code(s): R19.7 - Diarrhea, unspecified Hypertension Qualifiers: Hypertension type: essential hypertension Qualified Code(s): I10 - Essential (primary) hypertension Disposition: TO HOME OR SELFCARE Is pt being admited?: No Condition: Stable Instructions: Acute Nausea and Vomiting (ED), Acute Diarrhea (ED), Abdominal Pain (ED), Hypertension (ED) Additional Instructions: Please follow-up with a primary care physician in the next few days. Return to the emergency Department with any worsening of your symptoms or any acute dist ress. Take your blood pressure medications as prescribed. Try and stay away from foods that are high in salt and caffeinated products. Keep a blood pressure log. Continue taking your diabetes medications. Try and stay away from foods that are high in sugar, carbohydrates and starches. Keep a blood sugar log. Prescriptions: Ondansetron [Zofran Odt] 4 mg PO Q8HR PRN #14 tab.rapdis PRN Reason: Nausea Referrals: MARIANNE SEE MD [Staff Physician] - 2-3 Days [facility] [Outside] - 2-3 Days Forms: Work/School Release Form(ED) Time of Disposition: 02:29
[2019-01-22] MEDS ORDERED: TORADOL IV ONE (01:16)
--- NOTE | 2019-01-22 01:23 | XRay Report ---
ABDOMEN 2 VIEW(S) INDICATION / CLINICAL INFORMATION: Abdominal Pain. COMPARISON: None available. FINDINGS: TUBES / LINES: None. BOWEL GAS PATTERN: Negative for bowel distention, free air or suspicious calcification. No significan t constipation. ADDITIONAL FINDINGS: No significant additional findings. IMPRESSION: Unremarkable abdomen. Signer Name: Gamaliel Levine MD Signed: 01/22/2019 1:18 AM Workstation Name: [id number]
[2019-01-22 01:26] LABS: Bilirubin,Urine NEG (Negative); Blood,Urine NEG (Negative); Color,Urine Yellow (Yellow); Protein,Urine <15 mg/dL mg/dL (Negative); Urobilinogen,Urine < 2.0 mg/dL (<2.0)
[2019-01-22 02:07] VITALS: BP 164/87
[2019-01-22 02:21] LABS: Basophils % (Manual) 0 % (0.0-1.8); Total Cells Counted 100
[2019-01-22 02:22] LABS: Anisocytosis 1+; Large Platelets 1+; Platelet Estimate Consistent w Auto; Target Cells 1+
== END 2019-01-22 03:14 | disposition home or self-care (01) ==
LOC: ED 22:53
DX: I10 Essential (primary) hypertension (principal); R11.2 Nausea with vomiting, unspecified; R19.7 Diarrhea, unspecified; R10.84 Generalized abdominal pain
CPT/HCPCS: 36415; 74019; 80053; 81001; 82962; 83690; 85007; 85025; 96374; 96375; 99284; J1885; J2405

== ENCOUNTER 2020-08-12 23:37 | Observation (INO) | payer BC ==
--- NOTE | 2020-08-13 00:52 | XRay Report ---
XR chest routine 2V INDICATION / CLINICAL INFORMATION: chest pain COMPARISON: None available. FINDINGS: SUPPORT DEVICES: None. HEART / MEDIASTINUM: No significant abnormality. LUNGS / PLEURA: Lungs are clear. Costophrenic sulci are sharp. No pneumothorax. ADDITIONAL FINDINGS: No significant additional findings. IMPRESSION: 1. No acute findings. Signer Name: Rahul Owusu MD Signed: 08/13/2020 12:48 AM Workstation Name: [id number]
[2020-08-13 00:55] LABS: Basophils % (Auto) 0.8 % (0.0-1.8); Eosinophils # (Auto) 0.1 K/mm3 (0.0-0.4); Eosinophils % (Auto) 1.3 % (0.0-4.3); Hematocrit 35.7 % (35.5-45.6); Hemoglobin 12.5 gm/dl (11.8-15.2); Lymphocytes % (Auto) 50.1 % (13.4-35.0); Mean Corpuscular HGB Conc 35 % (32-34); Mean Corpuscular Volume 91 fl (84-94); Monocytes # (Auto) 0.7 K/mm3 (0.0-0.8); Monocytes % (Auto) 12.4 % (0.0-7.3); Platelet Count 204 K/mm3 (140-440); Red Blood Count 3.91 M/mm3 (3.65-5.03); Red Cell Distribution Width 13.9 % (13.2-15.2)
[2020-08-13 01:15] LABS: Alanine Aminotransferase 107 units/L (7-56); Albumin 3.7 g/dL (3.9-5); BUN/Creatinine Ratio 11; Blood Urea Nitrogen 9 mg/dL (9-20); Calcium 7.8 mg/dL (8.4-10.2); Hemolysis Index 15
--- NOTE | 2020-08-13 01:38 | Emergency Department Report ---
HPI - General Chief Complaint: Syncope Time Seen by Provider: 08/13/20 01:19 - HPI HPI: Room 3 The patient is a 60-year-old male present with a chief complaint of chest pain and syncopal episode. The patient states today he was in his usual state of he alth when at work while standing he suddenly became dizzy and had a syncopal episode. Patient states when he came to he had substernal chest pain radiating to the left upper extremity described as a hard in nature. Patient states it lasted 10 to 15 minutes and was intermittent. Patient states he did have an episode of nausea vomiting but denies shortness of breath. Patient states his last stress test occurred approximate 6 months ago and was normal but he is never had a cardiac catheterization ED Past Medical Hx - Past Medical History Previous Medical History?: Yes Hx Hypertension: Yes Hx Heart Attack/AMI: Yes (2016) Hx Diabetes: Yes Additional medical history: Gout - Surgical History Past Surgical History?: No - Family History Family history: no significant - Social History Smoking Status: Never Smoker Substance Use Type: None (Denies illicit drug use), Alcohol (Occasional) - Medications Home Medications: Home Medications Medication Instructions Recorded Confirmed Last Taken Type Naproxen [Naprosyn] 500 mg PO BID 08/30/16 08/30/16 Unknown History allopurinoL [Zyloprim] 300 mg PO QDAY 08/30/16 08/30/16 Unknown History metFORMIN [Glucophage] 500 mg PO BID 08/30/16 08/30/16 Unknown History Ondansetron [Zofran Odt] 4 mg PO Q8HR PRN #14 tab.rapdis 01/22/19 Unknown Rx ED Review of Systems ROS: Stated complaint: HIGH BLOOD SUGAR Other details as noted in HPI Constitutional: no symptoms reported Eyes: denies: eye pain ENT: denies: throat pain Respiratory: denies: shortness of breath Cardiovascular: chest pain Endocrine: no symptoms reported Gastrointestinal: nausea, vomiting Genitourinary: denies: dysuria Musculoskeletal: denies: back pain Neurological: denies: headache Physical Exam - Physical Exam Vital Signs: Vital Signs 08/13/20 00:12 Temperature 97.9 F Pulse Rate 89 Respiratory 18 Rate Blood Pressure 145/84 O2 Sat by Pulse 100 Oximetry Physical Exam: GENERAL: The patient is well-developed well-nourished male lying on stretcher not appearing to be in acute distress. [] HEENT: Normocephalic. Atraumatic. Extraocular motions are intact. Patient has moist mucous membranes. NECK: Supple. Trachea midline CHEST/LUNGS: Clear to auscultation. There is no respiratory distress noted. HEART/CARDIOVASCULAR: Regular. There is no tachycardia. There is no gallop rub or murmur. ABDOMEN: Abdomen is soft, nontender. Patient has normal bowel sounds. There is no abdominal distention. SKIN: There is no rash. There is no edema. There is no diaphoresis. NEURO: The patient is awake, alert, and oriented. The patient is cooperative. The patient has no focal neurologic deficits. The patient has normal speech. Cranial nerves II through XII grossly intact, no drift MUSCULOSKELETAL: There is no evidence of acute injury. ED Course Vital Signs 08/13/20 00:12 Temperature 97.9 F Pulse Rate 89 Respiratory 18 Rate Blood Pressure 145/84 O2 Sat by Pulse 100 Oximetry ED Medical Decision Making - Lab Data Result diagrams: 08/13/20 00:30 08/13/20 00:30 - EKG Data -: EKG Interpreted by Me EKG shows normal: sinus rhythm Rate: normal - EKG Data When compared to previous EKG there are: previous EKG unavailable Interpretation: other (No ischemic changes seen) - Radiology Data Radiology results: report reviewed (Chest x-ray), image reviewed (Chest x-ray) interpreted by me: Chest x-ray-no focal infiltrates, no pneumothorax. No foreign body seen [facility] [address] [place] [address] XRay Report Signed Patient: MATTIE FORBES MR#: [id number] : 1960 Acct:[id number] Age/Sex: 60 / M ADM Date: 08/12/20 Loc: ED Attending Dr: Ordering Physician: ED MD TAMMIE Date of Service: 08/13/20 Procedure(s): XR chest routine 2V Accession Number(s): [id number] cc: ED MD TAMMIE Fluoro Time In Minutes: XR chest routine 2V INDICATION / CLINICAL INFORMATION: chest pain COMPARISON: None available. FINDINGS: SUPPORT DEVICES: None. HEART / MEDIASTINUM: No significant abnormality. LUNGS / PLEURA: Lungs are clear. Costophrenic sulci are sharp. No pneumothorax. ADDITIONAL FINDINGS: No significant additional findings. IMPRESSION: 1. No acute findings. Signer Name: Rahul Owusu MD Signed: 08/13/2020 12:48 AM Workstation Name: [id number] Transcribed By: NATALIE Dictated By: Rahul Owusu MD Electronically Authenticated By: Rahul Owusu MD Signed Date/Time: 08/13/2047 DD/ TD/TT: [place] [address] Cat Scan Report Signed Patient: MATTIE FORBES MR#: [id number] : 1960 Acct:[id number] Age/Sex: 60 / M ADM Date: 08/12/20 Loc: ED Attending Dr: Ordering Physician: ANTELMO WHITE MD Date of Service: 08/13/20 Procedure(s): CT angio chest Accession Number(s): [id number] cc: ANTELMO WHITE MD CT angio chest INDICATION / CLINICAL INFORMATION: P.E. PROTOCOL!!! Patient complains of chest pains, syncope.. TECHNIQUE: Axial CT images were obtained through the chest after injection of IV contrast. 3 plane MIP and/or 3D reconstructions were produced. All CT scans at this location are performed using CT dose reduction for ALARA by means of automated exposure control. COMPARISON: X-ray from same day FINDINGS: PULMONARY ARTERIES: No pulmonary emboli. HEART: No significant abnormality. MEDIASTINUM / DACIA: No significant abnormality. LUNGS: Small quantity of groundglass opacities are seen within the bilateral lungs with a peripheral subpleural predilection. No pleural effusion. No pneumothorax. ADDITIONAL FINDINGS: None. UPPER ABDOMEN: No acute findings. SKELETAL STRUCTURES: No significant osseous abnormality. IMPRESSION: 1. No CT evidence for pulmonary embolism. 2. Mild bilateral groundglass opacities with classic imaging features of Covid pneumonia. Commonly reported imaging features of Covid pneumonia are present. Reference: https://pubs.rsna.org/doi/full/10.1148/ryct.[email or web address] Signer Name: Rahul Owusu MD Signed: 08/13/2020 3:50 AM Workstation Name: [id number] Transcribed By: NATALIE Dictated By: Rahul Owusu MD Electronically Authenticated By: Rahul Owusu MD Signed Date/Time: 08/13/20349 DD/ 7 [facility] [address] [place] [address] Cat Scan Report Signed Patient: MATTIE FORBES MR#: [id number] : 1960 Acct:[id number] Age/Sex: 60 / M ADM Date: 08/12/20 Loc: ED Attending Dr: Ordering Physician: ANTELMO WHITE MD Date of Service: 08/13/20 Procedure(s): CT head/brain wo con Accession Number(s): [id number] cc: ANTELMO WHITE MD CT head/brain wo con INDICATION: Syncope. TECHNIQUE: Routine CT head. All CT scans at this location are performed using CT dose reduction for ALARA by means of automated exposure control. COMPARISON: None. FINDINGS: Intracranial: Trevino-white matter differentiation is maintained. No intracranial hemorrhage. No extra axial collection. No hydrocephalus. No herniation. Sinuses: Paranasal sinuses and mastoid air cells are essentially clear. Orbits: Globes are intact. Calvarium: No acute fracture. IMPRESSION: 1. No acute intracranial abnormality. Signer Name: Rahul Owusu MD Signed: 08/13/2020 3:47 AM Workstation Name: [id number] Transcribed By: CS Dictated By: Rahul Owusu MD Electronically Authenticated By: Rahul Owusu MD Signed Date/Time: 08/13/20346 DD/ 5 TD/TT: - Differential Diagnosis ACS, dysrhythmia, PE, pericarditis, GERD Critical care attestation.: If time is entered above; I have spent that time in minutes in the direct care of this critically ill patient, excluding procedure time. ED Disposition Clinical Impression: Chest pain, Syncope, Suspected COVID-19 virus infection Disposition: OP ADMIT IP TO THIS HOSP Is pt being admited?: Yes Does the pt Need Aspirin: Yes Condition: Fair Instructions: Nonspecific Chest Pain, Adult, Syncope (ED) Referrals: [facility] MD MARY [Primary Care Provider] - 3-5 Days Time of Disposition: 05:10 (Hospitalist paged (Dr Chiang))
[2020-08-13] MEDS ORDERED: PANTOPRAZOLE 40 MG INJ IV ONE (02:45)
[2020-08-13] MEDS ORDERED: SODIUM CHLORIDE 0.9% 1000 ML 1,000 ML IV ONE (02:45)
[2020-08-13] MEDS ORDERED: ONDANSETRON 4 MG/2 ML INJ IV ONE (02:45)
--- NOTE | 2020-08-13 03:52 | Cat Scan Report ---
CT head/brain wo con INDICATION: Syncope. TECHNIQUE: Routine CT head. All CT scans at this location are performed using CT dose reduction for A DMITRY by means of automated exposure control. COMPARISON: None. FINDINGS: Intracranial: Trevino-white matter differentiation is maintained. No intracranial hemorrhage. No extra a xial collection. No hydrocephalus. No herniation. Sinuses: Paranasal sinuses and mastoid air cells are essentially clear. Orbits: Globes are intact. Calvarium: No acute fracture. IMPRESSION: 1. No acute intracranial abnormality. Signer Name: Rahul Owusu MD Signed: 08/13/2020 3:47 AM Workstation Name: [id number]
--- NOTE | 2020-08-13 03:55 | Cat Scan Report ---
CT angio chest INDICATION / CLINICAL INFORMATION: P.E. PROTOCOL!!! Patient complains of chest pains, syncope.. TECHNIQUE: Axial CT images were obtained through the chest after injection of IV contrast. 3 plane MIP and/or 3D reconstructions were produced. All CT scans at this location are performed using CT dose reduction f or ALARA by means of automated exposure control. COMPARISON: X-ray from same day FINDINGS: PULMONARY ARTERIES: No pulmonary emboli. HEART: No significant abnormality. MEDIASTINUM / DACIA: No significant abnormality. LUNGS: Small quantity of groundglass opacities are seen within the bilateral lungs with a peripheral subpleural predilection. No pleural effusion. No pneumothorax. ADDITIONAL FINDINGS: None. UPPER ABDOMEN: No acute findings. SKELETAL STRUCTURES: No significant osseous abnormality. IMPRESSION: 1. No CT evidence for pulmonary embolism. 2. Mild bilateral groundglass opacities with classic imaging features of Covid pneumonia. Commonly reported imaging features of Covid pneumonia are present. Reference: https://pubs.rsna.org/d oi/full/10.1148/ryct.[email or web address] Signer Name: Rahul Owusu MD Signed: 08/13/2020 3:50 AM Workstation Name: [id number]
[2020-08-13] MEDS ORDERED: AZITHROMYCIN/NS 500 MG/250 ML 500 MG/250 ML BAG IV ONE (05:01)
[2020-08-13] MEDS ORDERED: cefTRIAXone/NS 1 GM/50 ML 1 GM/50 ML BAG IV ONE (05:01)
[2020-08-13] MEDS ORDERED: METOCLOPRAMIDE 10 MG/2 ML INJ IV ONE (05:41)
[2020-08-13] MEDS ORDERED: hydrALAZINE 20 MG/1 ML INJ IV ONE (06:07)
[2020-08-13] MEDS ORDERED: ONDANSETRON 4 MG/2 ML INJ IV PRN (06:08)
[2020-08-13] MEDS ORDERED: traMADol 50 MG TAB PO PRN (06:08)
[2020-08-13] MEDS ORDERED: DEXTROSE 50% IN WATER (25GM) 50 ML SYRINGE IV PRN (06:08)
[2020-08-13] MEDS ORDERED: NITROGLYCERIN 0.4 MG TAB SUBL SL PRN (06:08)
[2020-08-13] MEDS ORDERED: ACETAMINOPHEN 325 MG TAB PO PRN ×2 (06:08)
--- NOTE | 2020-08-13 06:37 | History and Physical Report ---
History of Present Illness Date of examination: 08/13/20 Date of admission: 08/13/20 05:43 Chief complaint: Chest Pain Dizziness History of present illness: 60-year-old -M[place]ese male with known history of hypertension, diabetes mellitus, history of DC in the past presenting in the emergency room today complaining of chest pain and syncopal episode. Patient states that he was at work when he suddenly felt dizzy and had a syncopal episode. Chest pain is said to be substernal and radiating towards the left upper extremity. Pain lasted for about 10 to 15 minutes and was said to be intermittent. There is no known relieving or exacerbating factor for his chest pain. He had associated nausea and vomiting but denies any shortness of breath. He denies any fever or chills and denies any headache. Denies any diaphoresis. Patient indicates that he had a normal stress test about 6 months ago. Work-up in the emergency room, patient had elevated D-dimer and elevated LFTs. CT scan of the head and chest x-ray did not reveal any acute findings. CT angiogram however reveals: 1. No CT evidence for pulmonary embolism. 2. Mild bilateral groundglass opacities with classic imaging features of Covid pneumonia. Patient is being admitted for chest pain work-up and possible Covid pneumonia. Past History Past Medical History: acute DC (in 2016), CAD, diabetes, hypertension, other (Gout,DC in 2016) Past Surgical History: No surgical history Social history: alcohol abuse Family history: no significant family history Medications and Allergies Allergies Allergy/AdvReac Type Severity Reaction Status Date / Time No Known Allergies Allergy Verified 01/14/19 03:36 Home Medications Medication Instructions Recorded Confirmed Last Taken Type Naproxen [Naprosyn] 500 mg PO BID 08/30/16 08/30/16 Unknown History allopurinoL [Zyloprim] 300 mg PO QDAY 08/30/16 08/30/16 Unknown History metFORMIN [Glucophage] 500 mg PO BID 08/30/16 08/30/16 Unknown History Ondansetron [Zofran Odt] 4 mg PO Q8HR PRN #14 tab.rapdis 01/22/19 Unknown Rx Active Meds: Active Medications Acetaminophen (Acetaminophen 325 Mg Tab) 650 mg PO Q4H PRN PRN Reason: Pain MILD(1-3)/Fever >100.5/MENDIOLA Aspirin (Aspirin Ec 325 Mg Tab) 325 mg PO QDAY KACEY Dextrose (Dextrose 50% In Water (25gm) 50 Ml Syringe) 50 ml IV Q30MIN PRN; Protocol PRN Reason: Hypoglycemia Ceftriaxone Sodium (Rocephin/Ns 2 Gm/100 Ml) 2 gm in 100 mls @ 200 mls/hr IV Q24H KACEY; Protocol Azithromycin (Zithromax/Ns) 500 mg in 250 mls @ 250 mls/hr IV Q24H KACEY; Protocol Insulin Human Lispro (Insulin Lispro 100 Unit/Ml) 0 unit SUB-Q ACHS KACEY; Protocol Nitroglycerin (Nitroglycerin 0.4 Mg Tab Subl) 0.4 mg SL Q5M PRN PRN Reason: Chest Pain Ondansetron HCl (Ondansetron 4 Mg/2 Ml Inj) 4 mg IV Q8H PRN PRN Reason: Nausea And Vomiting Sodium Chloride (Sodium Chloride 0.9% 10 Ml Flush Syringe) 10 ml IV BID KACEY Sodium Chloride (Sodium Chloride 0.9% 10 Ml Flush Syringe) 10 ml IV PRN PRN PRN Reason: LINE FLUSH Tramadol HCl (Tramadol 50 Mg Tab) 50 mg PO Q6H PRN PRN Reason: Pain, Moderate (4-6) Review of Systems Constitutional: no fever, no chills Ears, nose, mouth and throat: no nasal congestion, no sore throat Cardiovascular: chest pain, no palpitations Respiratory: no cough, no shortness of breath Gastrointestinal: nausea, vomiting, no abdominal pain, no diarrhea Genitourinary Male: no dysuria, no hematuria, no nocturia Musculoskeletal: no neck pain, no low back pain Integumentary: no rash, no pruritis Neurological: syncope, no headaches, no confusion Psychiatric: no anxiety, no depression Endocrine: no polyphagia, no polyuria, no nocturia Exam - Constitutional Vitals: Temp Pulse Resp BP Pulse Ox 97.9 F 96 H 18 145/83 96 08/13/20 00:12 08/13/20 06:31 08/13/20 06:31 08/13/20 06:31 08/13/20 06:31 General appearance: Present: no acute distress, well-nourished - EENT Eyes: Present: PERRL, EOM intact. Absent: scleral icterus ENT: hearing intact, clear oral mucosa, dentition normal - Neck Neck: Present: supple, normal ROM - Respiratory Respiratory effort: normal Respiratory: bilateral: CTA - Cardiovascular Rhythm: regular Heart Sounds: Present: S1 & S2. Absent: gallop, systolic murmur, diastolic murmur, rub, click - Extremities Extremities: no ischemia, pulses intact, pulses symmetrical, No edema, normal temperature, normal color, Full ROM Peripheral Pulses: within normal limits - Abdominal General gastrointestinal: Present: soft, non-tender, non-distended, normal bowel sounds. Absent: mass - Integumentary Integumentary: Present: clear, warm, dry. Absent: rash - Musculoskeletal Musculoskeletal: strength equal bilaterally - Psychiatric Psychiatric: appropriate mood/affect, intact judgment & insight, memory intact, cooperative - Neurologic Neurologic: CNII-XII intact, moves all extremities HEART Score - HEART Score History: Slightly suspicious EKG: Non-specific Age: 45-65 Risk factors: > 3 risk factors or hx of atherosclerotic disease Troponin: Troponin T < 0.010 ng/mL (0.00-0.029) 08/13/20 00:30 Troponin: < normal limit HEART Score: 4 Results - Labs CBC & Chem 7: 08/13/20 00:30 08/13/20 04:31 Labs: Abnormal lab results 08/13/20 08/13/20 08/13/20 Range/Units 00:30 00:30 01:37 MCHC 35 H (32-34) % Lymph % (Auto) 50.1 H (13.4-35.0) % [place] % (Auto) 12.4 H (0.0-7.3) % Seg Neutrophils % 35.4 L (40.0-70.0) % D-Dimer 358.81 H (0-234) ng/mlDDU Sodium 134 L (137-145) mmol/L Glucose 214 H (75-100) mg/dL Calcium 7.8 L (8.4-10.2) mg/dL Ferritin (30.0-300.0) ng/mL AST 582 H (5-40) units/L ALT 107 H (7-56) units/L Alkaline Phosphatase 159 H (35-129) units/L Lactate Dehydrogenase (91-180) units/L Albumin 3.7 L (3.9-5) g/dL Plasma/Serum Alcohol (0-0.07) % 08/13/20 08/13/20 08/13/20 Range/Units 04:31 04:31 05:49 MCHC (32-34) % Lymph % (Auto) (13.4-35.0) % [place] % (Auto) (0.0-7.3) % Seg Neutrophils % (40.0-70.0) % D-Dimer (0-234) ng/mlDDU Sodium (137-145) mmol/L Glucose 166 H (75-100) mg/dL Calcium (8.4-10.2) mg/dL Ferritin 764.6 H (30.0-300.0) ng/mL AST (5-40) units/L ALT (7-56) units/L Alkaline Phosphatase (35-129) units/L Lactate Dehydrogenase 319 H (91-180) units/L Albumin (3.9-5) g/dL Plasma/Serum Alcohol 0.18 H (0-0.07) % Assessment and Plan - Patient Problems (1) Chest pain Current Visit: Yes Status: Acute Plan to address problem: Patient admitted and placed on telemetry. We will check serial cardiac enzymes. Patient placed on aspirin, sublingual nitroglycerin and IV morphine as needed for chest pain. We will place consult to cardiology for evaluation. (2) Hypertension Current Visit: Yes Status: Acute Plan to address problem: We will resume routine home medications once reconciled. Will monitor vital signs closely. (3) Diabetes mellitus Current Visit: Yes Status: Acute Plan to address problem: We will monitor Accu-Cheks closely. Patient placed on sliding scale insulin. (4) Suspected COVID-19 virus infection Current Visit: Yes Status: Acute Plan to address problem: Patient placed on isolation precautions. We will place consult infectious disease for evaluation. Will await COVID-19 testing. (5) Syncope Current Visit: Yes Status: Acute Plan to address problem: Etiology unclear. Patient scheduled for echocardiogram and carotid Doppler. (6) Abnormal LFTs (liver function tests) Current Visit: Yes Status: Acute Plan to address problem: Possibly related to the alcohol abuse. We will also check hepatitis profile. We will monitor liver enzymes and also place consult to gastroenterology for evaluation and recommendation. (7) DVT prophylaxis Current Visit: Yes Status: Acute Plan to address problem: Patient placed on subcutaneous heparin. (8) Full code status Current Visit: Yes Status: Acute
[2020-08-13] MEDS ORDERED: hydrALAZINE 20 MG/1 ML INJ IV PRN (07:06)
[2020-08-13] MEDS ORDERED: INSULIN LISPRO 100 UNIT/ML SUB-Q SCH (07:30)
[2020-08-13] MEDS: INSULIN LISPRO 100 UNIT/ML SUB-Q SCH ×2 (07:40→12:05)
--- NOTE | 2020-08-13 07:40 | Gastroenterology Consultation ---
History of Present Illness - Reason for Consult Consult date: 08/13/20 elevated lft Requesting physician: NUZHAT ARMIJO - History of Present Illness 60-year-old -[place] male with known history of hypertension, diabetes mellitus, history of IA in the past presenting in the emergency room today complaining of chest pain and syncopal episode. Patient states that he was at work when he suddenly felt dizzy and had a syncopal episode. Chest pain is said to be substernal and radiating towards the left upper extremity. Pain lasted for about 10 to 15 minutes and was said to be intermittent. There is no known relieving or exacerbating factor for his chest pain. He had associated nausea and vomiting but denies any shortness of breath. He denies any fever or chills and denies any headache. Denies any diaphoresis. GI was consulted for elevated liver enzymes. Patient denies any history of liver disease. However he does report drinking alcohol with the last drink of alcohol yesterday he reports drinking 1 large beer. He reports drinking these routinely though not every day. Denies jaundice Past History Past Medical History: acute IA (in 2016), CAD, diabetes, hypertension, other (Gout,IA in 2016) Past Surgical History: No surgical history Social history: alcohol abuse Family history: no significant family history Medications and Allergies Allergies Allergy/AdvReac Type Severity Reaction Status Date / Time No Known Allergies Allergy Verified 01/14/19 03:36 Home Medications Medication Instructions Recorded Confirmed Last Taken Type Naproxen [Naprosyn] 500 mg PO BID 08/30/16 08/30/16 Unknown History allopurinoL [Zyloprim] 300 mg PO QDAY 08/30/16 08/30/16 Unknown History metFORMIN [Glucophage] 500 mg PO BID 08/30/16 08/30/16 Unknown History Ondansetron [Zofran Odt] 4 mg PO Q8HR PRN #14 tab.rapdis 01/22/19 Unknown Rx Active Meds: Active Medications Acetaminophen (Acetaminophen 325 Mg Tab) 650 mg PO Q4H PRN PRN Reason: Pain MILD(1-3)/Fever >100.5/MENDIOLA Aspirin (Aspirin Ec 325 Mg Tab) 325 mg PO QDAY KACEY Dextrose (Dextrose 50% In Water (25gm) 50 Ml Syringe) 50 ml IV Q30MIN PRN; Protocol PRN Reason: Hypoglycemia Heparin Sodium (Porcine) (Heparin 5,000 Unit/1 Ml Vial) 5,000 unit SUB-Q Q8HR KACEY Hydralazine HCl (Hydralazine 20 Mg/1 Ml Inj) 10 mg IV Q4HR PRN PRN Reason: Blood Pressure Ceftriaxone Sodium (Rocephin/Ns 2 Gm/100 Ml) 2 gm in 100 mls @ 200 mls/hr IV Q24H KACEY; Protocol Azithromycin (Zithromax/Ns) 500 mg in 250 mls @ 250 mls/hr IV Q24H KACEY; Protocol Insulin Human Lispro (Insulin Lispro 100 Unit/Ml) 0 unit SUB-Q ACHS KACEY; Protocol Last Admin: 08/13/20 07:40 Dose: Not Given Documented by: Nitroglycerin (Nitroglycerin 0.4 Mg Tab Subl) 0.4 mg SL Q5M PRN PRN Reason: Chest Pain Ondansetron HCl (Ondansetron 4 Mg/2 Ml Inj) 4 mg IV Q8H PRN PRN Reason: Nausea And Vomiting Sodium Chloride (Sodium Chloride 0.9% 10 Ml Flush Syringe) 10 ml IV BID KACEY Sodium Chloride (Sodium Chloride 0.9% 10 Ml Flush Syringe) 10 ml IV PRN PRN PRN Reason: LINE FLUSH Tramadol HCl (Tramadol 50 Mg Tab) 50 mg PO Q6H PRN PRN Reason: Pain, Moderate (4-6) Review of Systems - Review of Systems All systems: negative (10 Systems reviewed and negative except as mentioned above in the history of present illness) Exam - Constitutional Vital Signs: Temp Pulse Resp BP Pulse Ox 97.9 F 88 18 107/61 100 08/13/20 00:12 08/13/20 07:10 08/13/20 07:10 08/13/20 07:10 08/13/20 07:10 General appearance: no acute distress - EENT Eyes: EOM intact ENT: hearing intact - Neck Neck: supple - Respiratory Respiratory effort: normal - Cardiovascular Rhythm: regular - Gastrointestinal General gastrointestinal: Present: soft - Integumentary Integumentary: Present: dry - Neurologic Neurological: alert and oriented x3 - Psychiatric Psychiatric: appropriate mood/affect - Labs CBC & Chem 7: 08/13/20 00:30 08/13/20 04:31 Lab Results: Laboratory Results - last 24 hr 08/13/20 08/13/20 08/13/20 00:30 00:30 01:37 WBC 6.0 RBC 3.91 Hgb 12.5 Hct 35.7 MCV 91 MCH 32 MCHC 35 H RDW 13.9 Plt Count 204 Lymph % (Auto) 50.1 H [place] % (Auto) 12.4 H Eos % (Auto) 1.3 Baso % (Auto) 0.8 Lymph # (Auto) 3.0 [place] # (Auto) 0.7 Eos # (Auto) 0.1 Baso # (Auto) 0.0 Seg Neutrophils % 35.4 L Seg Neutrophils # 2.1 D-Dimer 358.81 H Sodium 134 L Potassium 4.1 Chloride 98.1 Carbon Dioxide 24 Anion Gap 16 BUN 9 Creatinine 0.8 Estimated GFR > 60 BUN/Creatinine Ratio 11 Glucose 214 H Calcium 7.8 L Ferritin Total Bilirubin 0.30 AST 582 H ALT 107 H Alkaline Phosphatase 159 H Lactate Dehydrogenase Troponin T < 0.010 C-Reactive Protein Total Protein 7.3 Albumin 3.7 L Albumin/Globulin Ratio 1.0 Plasma/Serum Alcohol 08/13/20 08/13/20 08/13/20 04:31 04:31 04:31 WBC RBC Hgb Hct MCV MCH MCHC RDW Plt Count Lymph % (Auto) [place] % (Auto) Eos % (Auto) Baso % (Auto) Lymph # (Auto) [place] # (Auto) Eos # (Auto) Baso # (Auto) Seg Neutrophils % Seg Neutrophils # D-Dimer 86.61 Sodium Potassium Chloride Carbon Dioxide Anion Gap BUN Creatinine Estimated GFR BUN/Creatinine Ratio Glucose 166 H Calcium Ferritin 764.6 H Total Bilirubin AST ALT Alkaline Phosphatase Lactate Dehydrogenase 319 H Troponin T C-Reactive Protein 0.00 Total Protein Albumin Albumin/Globulin Ratio Plasma/Serum Alcohol 08/13/20 05:49 WBC RBC Hgb Hct MCV MCH MCHC RDW Plt Count Lymph % (Auto) [place] % (Auto) Eos % (Auto) Baso % (Auto) Lymph # (Auto) [place] # (Auto) Eos # (Auto) Baso # (Auto) Seg Neutrophils % Seg Neutrophils # D-Dimer Sodium Potassium Chloride Carbon Dioxide Anion Gap BUN Creatinine Estimated GFR BUN/Creatinine Ratio Glucose Calcium Ferritin Total Bilirubin AST ALT Alkaline Phosphatase Lactate Dehydrogenase Troponin T C-Reactive Protein Total Protein Albumin Albumin/Globulin Ratio Plasma/Serum Alcohol 0.18 H Assessment and Plan The pattern of liver injury is most consistent with either extrahepatic source such as elevated liver enzymes due to underlying infection, with alcohol related likely as well given the pattern of liver injury. Patient's liver enzymes are not severely elevated, recommend trending daily and and patient will require full outpatient evaluation if the numbers do not improve over the next few weeks - Patient Problems (1) Abnormal LFTs (liver function tests) Current Visit: Yes Status: Acute
[2020-08-13 10:31] LABS: Basophils # (Auto) 0.1 K/mm3 (0.0-0.1); Basophils % (Auto) 1.3 % (0.0-1.8); Eosinophils # (Auto) 0.1 K/mm3 (0.0-0.4); Hematocrit 35.9 % (35.5-45.6); Hemoglobin 12.3 gm/dl (11.8-15.2); Lymphocytes # (Auto) 2.8 K/mm3 (1.2-5.4); Lymphocytes % (Auto) 48.5 % (13.4-35.0); Mean Corpuscular HGB Conc 34 % (32-34); Mean Corpuscular Volume 91 fl (84-94); Monocytes # (Auto) 0.6 K/mm3 (0.0-0.8); Monocytes % (Auto) 10.6 % (0.0-7.3); Platelet Count 209 K/mm3 (140-440); Red Blood Count 3.96 M/mm3 (3.65-5.03); Red Cell Distribution Width 13.8 % (13.2-15.2)
[2020-08-13 10:51] LABS: BUN/Creatinine Ratio 11; Blood Urea Nitrogen 9 mg/dL (9-20); Calcium 8.1 mg/dL (8.4-10.2); HDL Cholesterol 29 mg/dL (40-59); Hemolysis Index 12; LDL Cholesterol,Direct 26 mg/dL (50-130)
--- NOTE | 2020-08-13 12:04 | Consultation ---
History of Present Illness Consult date: 08/13/20 Consult reason: chest pain History of present illness: This is a 60-year old male who is admitted with atypical chest pain. Chest pain is poorly characterized and non-exertional. Denies shortness of breath, denies palpitations and denies syncope. No edema. Patient reports a history of diabetes. In addition, he is a chronic alcohol abuser and drinks alcohol on a daily basis. Initial labs shows elevated liver transaminases associated with alcohol intoxication. Troponin measurement was normal. His ECG is benign, normal sinus rhythm. Past History Past Medical History: diabetes Past Surgical History: No surgical history Social history: alcohol abuse Family history: no significant family history Medications and Allergies Allergies Allergy/AdvReac Type Severity Reaction Status Date / Time No Known Allergies Allergy Verified 01/14/19 03:36 Home Medications Medication Instructions Recorded Confirmed Last Taken Type Naproxen [Naprosyn] 500 mg PO BID 08/30/16 08/30/16 Unknown History allopurinoL [Zyloprim] 300 mg PO QDAY 08/30/16 08/30/16 Unknown History metFORMIN [Glucophage] 500 mg PO BID 08/30/16 08/30/16 Unknown History Ondansetron [Zofran Odt] 4 mg PO Q8HR PRN #14 tab.rapdis 01/22/19 Unknown Rx Active Meds: Active Medications Acetaminophen (Acetaminophen 325 Mg Tab) 650 mg PO Q4H PRN PRN Reason: Pain MILD(1-3)/Fever >100.5/MENDIOLA Aspirin (Aspirin Ec 325 Mg Tab) 325 mg PO QDAY KACEY Dextrose (Dextrose 50% In Water (25gm) 50 Ml Syringe) 50 ml IV Q30MIN PRN; Protocol PRN Reason: Hypoglycemia Heparin Sodium (Porcine) (Heparin 5,000 Unit/1 Ml Vial) 5,000 unit SUB-Q Q8HR KACEY Hydralazine HCl (Hydralazine 20 Mg/1 Ml Inj) 10 mg IV Q4HR PRN PRN Reason: Blood Pressure Ceftriaxone Sodium (Rocephin/Ns 2 Gm/100 Ml) 2 gm in 100 mls @ 200 mls/hr IV Q24H KACEY; Protocol Azithromycin (Zithromax/Ns) 500 mg in 250 mls @ 250 mls/hr IV Q24H KACEY; Protocol Insulin Human Lispro (Insulin Lispro 100 Unit/Ml) 0 unit SUB-Q ACHS KACEY; Protocol Last Admin: 08/13/20 07:40 Dose: Not Given Documented by: Nitroglycerin (Nitroglycerin 0.4 Mg Tab Subl) 0.4 mg SL Q5M PRN PRN Reason: Chest Pain Ondansetron HCl (Ondansetron 4 Mg/2 Ml Inj) 4 mg IV Q8H PRN PRN Reason: Nausea And Vomiting Sodium Chloride (Sodium Chloride 0.9% 10 Ml Flush Syringe) 10 ml IV BID KACEY Sodium Chloride (Sodium Chloride 0.9% 10 Ml Flush Syringe) 10 ml IV PRN PRN PRN Reason: LINE FLUSH Tramadol HCl (Tramadol 50 Mg Tab) 50 mg PO Q6H PRN PRN Reason: Pain, Moderate (4-6) Review of Systems Cardiovascular: no chest pain, no palpitations, no syncope, no lightheadedness, no shortness of breath Physical Examination Vital Signs Temp Pulse Resp BP Pulse Ox 97.9 F 89 18 145/84 100 08/13/20 00:12 08/13/20 00:12 08/13/20 00:12 08/13/20 00:12 08/13/20 00:12 General appearance: no acute distress HEENT: Positive: PERRL Neck: Positive: trachea midline Cardiac: Positive: Reg Rate and Rhythm Neuro: Positive: Grossly Intact Results 08/13/20 10:14 08/13/20 10:14 Cardiac Enzymes 08/13/20 08/13/20 Range/Units 00:30 04:31 AST 582 H (5-40) units/L Lactate Dehydrogenase 319 H (91-180) units/L Lipids 08/13/20 Range/Units 10:14 Triglycerides 1294 H (2-149) mg/dL Cholesterol 203 H (50-199) mg/dL HDL Cholesterol 29 L (40-59) mg/dL Cholesterol/HDL Ratio 7.00 % CBC 08/13/20 08/13/20 Range/Units 00:30 10:14 WBC 6.0 5.7 (4.5-11.0) K/mm3 RBC 3.91 3.96 (3.65-5.03) M/mm3 Hgb 12.5 12.3 (11.8-15.2) gm/dl Hct 35.7 35.9 (35.5-45.6) % Plt Count 204 209 (140-440) K/mm3 Lymph # (Auto) 3.0 2.8 (1.2-5.4) K/mm3 [place] # (Auto) 0.7 0.6 (0.0-0.8) K/mm3 Eos # (Auto) 0.1 0.1 (0.0-0.4) K/mm3 Baso # (Auto) 0.0 0.1 (0.0-0.1) K/mm3 Comprehensive Metabolic Panel 08/13/20 08/13/20 08/13/20 Range/Units 00:30 04:31 10:14 Sodium 134 L 132 L (137-145) mmol/L Potassium 4.1 4.0 (3.6-5.0) mmol/L Chloride 98.1 96.4 L (98-107) mmol/L Carbon Dioxide 24 23 (22-30) mmol/L BUN 9 9 (9-20) mg/dL Creatinine 0.8 0.8 (0.8-1.3) mg/dL Glucose 214 H 166 H 222 H (75-100) mg/dL Calcium 7.8 L 8.1 L (8.4-10.2) mg/dL AST 582 H (5-40) units/L ALT 107 H (7-56) units/L Alkaline Phosphatase 159 H (35-129) units/L Total Protein 7.3 (6.3-8.2) g/dL Albumin 3.7 L (3.9-5) g/dL Assessment and Plan - Patient Problems (1) Chest pain Current Visit: Yes Status: Acute Plan to address problem: Atypical
[2020-08-13 12:31] LABS: Hepatitis B Surface Antigen Non-Reactive (Negative); Hepatitis C Virus Antibody Non-Reactive (NonReactive)
--- NOTE | 2020-08-13 13:19 | Consultation ---
History of Present Illness - Reason for Consult Consult date: 08/13/20 - History of Present Illness 60-year-old man past medical history hypertension, diabetes, CAD with OR presented to the emergency room complaining of chest pain and syncope. He was at work when he began suddenly feeling dizzy and lost consciousness. His pain radiated towards left upper extremity and was intermittent. He otherwise denies any other symptoms. ID is consulted for Covid rule out. Afebrile since admission with a white count of 5.7. Normal renal function, normal procalcitonin. Currently on ceftriaxone and azithromycin. Blood cultures currently pending. He is not hypoxic. Covid testing pending. Imaging personally reviewed: Chest CTA: No evidence of pulmonary embolism. Mild bilateral groundglass opacities. Review of systems: Deferred due to PPE conservation strategy. Past History Past Medical History: diabetes Past Surgical History: No surgical history Social history: alcohol abuse Family history: no significant family history Medications and Allergies Allergies Allergy/AdvReac Type Severity Reaction Status Date / Time No Known Allergies Allergy Verified 01/14/19 03:36 Home Medications Medication Instructions Recorded Confirmed Last Taken Type Naproxen [Naprosyn] 500 mg PO BID 08/30/16 08/30/16 Unknown History allopurinoL [Zyloprim] 300 mg PO QDAY 08/30/16 08/30/16 Unknown History metFORMIN [Glucophage] 500 mg PO BID 08/30/16 08/30/16 Unknown History Ondansetron [Zofran Odt] 4 mg PO Q8HR PRN #14 tab.rapdis 01/22/19 Unknown Rx Active Meds: Active Medications Acetaminophen (Acetaminophen 325 Mg Tab) 650 mg PO Q4H PRN PRN Reason: Pain MILD(1-3)/Fever >100.5/MENDIOLA Aspirin (Aspirin Ec 325 Mg Tab) 325 mg PO QDAY KACEY Dextrose (Dextrose 50% In Water (25gm) 50 Ml Syringe) 50 ml IV Q30MIN PRN; Protocol PRN Reason: Hypoglycemia Heparin Sodium (Porcine) (Heparin 5,000 Unit/1 Ml Vial) 5,000 unit SUB-Q Q8HR KACEY Hydralazine HCl (Hydralazine 20 Mg/1 Ml Inj) 10 mg IV Q4HR PRN PRN Reason: Blood Pressure Ceftriaxone Sodium (Rocephin/Ns 2 Gm/100 Ml) 2 gm in 100 mls @ 200 mls/hr IV Q24H KACEY; Protocol Azithromycin (Zithromax/Ns) 500 mg in 250 mls @ 250 mls/hr IV Q24H KACEY; Protocol Insulin Human Lispro (Insulin Lispro 100 Unit/Ml) 0 unit SUB-Q ACHS KACEY; Protocol Last Admin: 08/13/20 12:05 Dose: 2 unit Documented by: Nitroglycerin (Nitroglycerin 0.4 Mg Tab Subl) 0.4 mg SL Q5M PRN PRN Reason: Chest Pain Ondansetron HCl (Ondansetron 4 Mg/2 Ml Inj) 4 mg IV Q8H PRN PRN Reason: Nausea And Vomiting Sodium Chloride (Sodium Chloride 0.9% 10 Ml Flush Syringe) 10 ml IV BID [facility] Last Admin: 08/13/20 12:05 Dose: 10 ml Documented by: Sodium Chloride (Sodium Chloride 0.9% 10 Ml Flush Syringe) 10 ml IV PRN PRN PRN Reason: LINE FLUSH Tramadol HCl (Tramadol 50 Mg Tab) 50 mg PO Q6H PRN PRN Reason: Pain, Moderate (4-6) Physical Examination - Physical Exam Narrative exam: Physical exam deferred due to PPE conservation strategy. Please refer to primary team's note. - Constitutional Vitals: Vital Signs Temp Pulse Resp BP Pulse Ox 97.9 F 108 H 16 137/73 99 08/13/20 00:12 08/13/20 08:13 08/13/20 08:13 08/13/20 08:13 08/13/20 08:13 Temperature -Last 24 Hours Temperature 97.9 F Results - Labs CBC & Chem 7: 08/13/20 10:14 08/13/20 10:14 Labs: Abnormal lab results 08/13/20 08/13/20 08/13/20 Range/Units 00:30 00:30 01:37 MCHC 35 H (32-34) % Lymph % (Auto) 50.1 H (13.4-35.0) % [place] % (Auto) 12.4 H (0.0-7.3) % Seg Neutrophils % 35.4 L (40.0-70.0) % D-Dimer 358.81 H (0-234) ng/mlDDU Sodium 134 L (137-145) mmol/L Chloride (98-107) mmol/L Glucose 214 H (75-100) mg/dL POC Glucose (70-105) mg/dL Calcium 7.8 L (8.4-10.2) mg/dL Ferritin (30.0-300.0) ng/mL AST 582 H (5-40) units/L ALT 107 H (7-56) units/L Alkaline Phosphatase 159 H (35-129) units/L Lactate Dehydrogenase (91-180) units/L Albumin 3.7 L (3.9-5) g/dL Triglycerides (2-149) mg/dL Cholesterol (50-199) mg/dL LDL Cholesterol Direct (50-130) mg/dL HDL Cholesterol (40-59) mg/dL Plasma/Serum Alcohol (0-0.07) % 08/13/20 08/13/20 08/13/20 Range/Units 04:31 04:31 05:49 MCHC (32-34) % Lymph % (Auto) (13.4-35.0) % [place] % (Auto) (0.0-7.3) % Seg Neutrophils % (40.0-70.0) % D-Dimer (0-234) ng/mlDDU Sodium (137-145) mmol/L Chloride (98-107) mmol/L Glucose 166 H (75-100) mg/dL POC Glucose (70-105) mg/dL Calcium (8.4-10.2) mg/dL Ferritin 764.6 H (30.0-300.0) ng/mL AST (5-40) units/L ALT (7-56) units/L Alkaline Phosphatase (35-129) units/L Lactate Dehydrogenase 319 H (91-180) units/L Albumin (3.9-5) g/dL Triglycerides (2-149) mg/dL Cholesterol (50-199) mg/dL LDL Cholesterol Direct (50-130) mg/dL HDL Cholesterol (40-59) mg/dL Plasma/Serum Alcohol 0.18 H (0-0.07) % 08/13/20 08/13/20 08/13/20 Range/Units 07:23 08:29 10:14 MCHC (32-34) % Lymph % (Auto) 48.5 H (13.4-35.0) % [place] % (Auto) 10.6 H (0.0-7.3) % Seg Neutrophils % 38.6 L (40.0-70.0) % D-Dimer (0-234) ng/mlDDU Sodium (137-145) mmol/L Chloride (98-107) mmol/L Glucose (75-100) mg/dL POC Glucose 167 H 198 H (70-105) mg/dL Calcium (8.4-10.2) mg/dL Ferritin (30.0-300.0) ng/mL AST (5-40) units/L ALT (7-56) units/L Alkaline Phosphatase (35-129) units/L Lactate Dehydrogenase (91-180) units/L Albumin (3.9-5) g/dL Triglycerides (2-149) mg/dL Cholesterol (50-199) mg/dL LDL Cholesterol Direct (50-130) mg/dL HDL Cholesterol (40-59) mg/dL Plasma/Serum Alcohol (0-0.07) % 08/13/20 08/13/20 Range/Units 10:14 11:55 MCHC (32-34) % Lymph % (Auto) (13.4-35.0) % [place] % (Auto) (0.0-7.3) % Seg Neutrophils % (40.0-70.0) % D-Dimer (0-234) ng/mlDDU Sodium 132 L (137-145) mmol/L Chloride 96.4 L (98-107) mmol/L Glucose 222 H (75-100) mg/dL POC Glucose 195 H (70-105) mg/dL Calcium 8.1 L (8.4-10.2) mg/dL Ferritin (30.0-300.0) ng/mL AST (5-40) units/L ALT (7-56) units/L Alkaline Phosphatase (35-129) units/L Lactate Dehydrogenase (91-180) units/L Albumin (3.9-5) g/dL Triglycerides 1294 H (2-149) mg/dL Cholesterol 203 H (50-199) mg/dL LDL Cholesterol Direct 26 L (50-130) mg/dL HDL Cholesterol 29 L (40-59) mg/dL Plasma/Serum Alcohol (0-0.07) % Assessment and Plan Cultures: Blood culture no growth so far A/P: 50-year-old man past medical history diabetes, hypertension, CAD admitted with chest pain and syncope. #Covid PUI: Follow-up PCR testing. Bilateral groundglass, not hypoxic at the present time. #Diabetes: tight glycemic control for best outcomes. #Chest pain: Work-up per primary Recs: -Follow-up Covid PCR -Patient not hypoxic, as such even if COVID positive no role for therapy at the present time. -If patient becomes hypoxic and COVID positive would start dexamethasone and remdesivir. -Anticoagulation per hospital protocol. -Other workup per primary. Thank you for the consult, we will continue to follow. Alfred Bartlett MD [facility] ([facility] O: [phone] F: [phone]
--- NOTE | 2020-08-13 13:32 | Electrocardiograph Report ---
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
[2020-08-13] MEDS ORDERED: HEPARIN 5,000 UNIT/1 ML VIAL SUB-Q SCH (14:00)
--- NOTE | 2020-08-13 15:24 | Discharge Summary ---
Providers - Providers Date of Admission: 08/13/20 05:43 Date of discharge: 08/13/20 Attending physician: OLVIN BELL 08/13/20 Consult to Cardiac Rehabilitation [CONS] Routine Reason For Exam: Phase I 08/13/20 06:08 Consult to Cardiology [CONS] Routine Consulting Provider: KALEB SIMPSON Reason For Exam: chest pain Consult to Dietitian/Nutrition [CONS] Routine Physician Instructions: Reason For Exam: Reason for Consult: Diet education Consult to Physician [CONS] Routine Comment: Consulting Provider: KAREN FARRAR Physician Instructions: Reason For Exam: Pneumonia R/O Covid 19 08/13/20 06:55 Consult to Physician [CONS] Routine Comment: Consulting Provider: MAI DOWNS Physician Instructions: Reason For Exam: Elevated liver enzymes [facility] Hospital[facility] Condition: Fair Hospital course: 60-year-old -[place] male with known history of hypertension, diabetes mellitus, history of DE in the past presented to the ER with complaints of chest pain and syncopal episode. Patient states that he was at work when he suddenly felt dizzy and had a syncopal episode. Chest pain is said to be substernal and radiating towards the left upper extremity. Pain lasted for about 10 to 15 minutes and was said to be intermittent. Patient indicates that he had a normal stress test about 6 months ago. Work-up in the emergency room, patient had elevated D-dimer and elevated LFTs. CT scan of the head and chest x-ray did not reveal any acute findings. CT angiogram however reveals: 1. No CT evidence for pulmonary embolism. 2. Mild bilateral groundglass opacities with classic imaging features of Covid pneumonia. Patient was admitted for chest pain work-up and possible Covid pneumonia. He was tested for COVID-19 and his test result was positive. ID was consulted. Patient noted to have no hypoxia. Patient wanted to go home and follow-up as outpatient. Patient also noted to have elevated alcohol level, counseled thoroughly for alcohol cessation and patient verbalized understanding. Patient was strongly recommended to come back to the hospital if he develops persistent fever, difficulty breathing. Patient verbalized understanding and was discharged home in stable condition with outpatient follow-up. Discharge diagnosis: Atypical chest pain, likely due to GERD and COVID-19 pneumonia -Patient had a normal stress test 6 months ago -CT chest showed mild bilateral groundglass opacities with classic imaging fea tures of Covid pneumonia. Abnormal LFTs, likely due to alcohol abuse Hyperlipidemia, low-fat diet for now. Recommended to initiate statin/fenofibrate when patient get cured from Covid COVID-19 infection, patient is not hypoxic and inflammatory markers are stable Syncopal episode, likely due to vasovagal and alcohol intoxication Alcohol abuse, counseled for cessation Hypertension Diabetes mellitus type 2 History of DE Final Discharge Diagnosis (Prints w/discharge instructions): Atypical chest pain. Abnormal liver function test. Hyperlipidemia. COVID-19 infection. Vasovagal syncope. Alcohol abuse. Hypertension. Diabetes mellitus type 2 Time spent for discharge: 34 minutes Core Measure Documentation - Palliative Care Palliative Care/ Comfort Measures: Not Applicable - Core Measures Any of the following diagnoses?: none Exam - Physical Exam Narrative exam: Vitals reviewed and stable - Constitutional Vitals: Temp Pulse Resp BP Pulse Ox 97.9 F 108 H 16 137/73 99 08/13/20 00:12 08/13/20 08:13 08/13/20 08:13 08/13/20 08:13 08/13/20 08:13 Plan Activity: advance as tolerated Weight Bearing Status: Weight Bear as Tolerated Diet: low fat, low salt, diabetic Special Instructions: other (Abstinence from alcohol) Additional Instructions: Upon discharge patient should self-quarantine at home up to 2 weeks from the onset of symptoms. Patients should return to hospital regardless if they have worsening fevers or respiratory status. Follow up with: CHARISSE JIMENESGERALDINE MD MARY [Primary Care Provider] - 3-5 Days EFRAIN SOLANO MD [Staff Physician] - 7 Days Prescriptions: Aspirin EC [Ecotrin] 325 mg PO QDAY #30 tablet Famotidine [Pepcid] 20 mg PO BID #14 tablet Ascorbic Acid [Vitamin C] 1,000 mg PO BID #14 tablet Cholecalciferol (Vitamin D3) [Vitamin D3] 5,000 unit PO DAILY #7 tablet Zinc Sulfate 220 mg PO BID #14 capsule
--- NOTE | 2020-08-13 16:54 | Vascular Lab Report ---
DUPLEX DOPPLER ULTRASOUND CAROTID, BILATERAL INDICATION / CLINICAL INFORMATION: Syncope. COMPARISON: None available. FINDINGS: RIGHT CAROTID: - PLAQUE ESTIMATE (%): < 50% - CCA velocity: 90 cm/sec. - ICA peak systolic velocity: 79 cm/sec. - ICA/CCA PSV Ratio: 24 Right Vertebral Artery: Antegrade flow. LEFT CAROTID: - PLAQUE ESTIMATE (%): < 50% - CCA velocity: 92 cm/sec. - ICA peak systolic velocity: 100 cm/sec. - ICA/CCA PSV Ratio: 37 Left Vertebral Artery: Antegrade flow. IMPRESSION: 1. Right Internal Carotid Artery: Less than 50% diameter stenosis. 2. Left Internal Carotid Artery: Less than 50% diameter stenosis. Velocity criteria are extrapolated from diameter data as defined by the Society of Radiologists in Ul trasound Consensus Conference, Radiology 2003; 229;340-346. NO STENOSIS (NORMAL) - Plaque = none; ICA PSV < 125 cm/sec; ICA/CCA PSV Ratio < 2.0 <50% STENOSIS - Plaque < 50%; ICA PSV < 125 cm/sec; ICA/CCA PSV Ratio < 2.0 50-69% STENOSIS - Plaque > 50%; ICA PSV = 125-230 cm/sec; ICA/CCA PSV Ratio = 2.0-4.0 >70% BUT <100% STENOSIS - Plaque > 50%; ICA PSV > 230 cm/sec; ICA/CCA PSV Ratio > 4.0 NEAR OCCLUSION - Plaque = visible lumen; ICA PSV = high/low/none; ICA/CCA PSV Ratio = variable TOTAL OCCLUSION - Plaque = no lumen; ICA PSV = none; ICA/CCA PSV Ratio = N/A Signer Name: Emmanuel Diamond MD Signed: 08/13/2020 4:49 PM Workstation Name: [id number]
[2020-08-13 16:58] VITALS: BP 154/103
[2020-08-13] MEDS ORDERED: ZINC SULFATE 220 MG CAP PO SCH (22:00)
[2020-08-13] MEDS ORDERED: ASCORBIC ACID 500 MG TAB PO SCH (22:00)
[2020-08-14] MEDS ORDERED: cefTRIAXone/NS 2 GM/100 ML 2 GM/100 ML BAG IV SCH (05:00)
[2020-08-14] MEDS ORDERED: AZITHROMYCIN/NS 500 MG/250 ML 500 MG/250 ML BAG IV SCH (05:00)
[2020-08-14] MEDS ORDERED: ASPIRIN EC 325 MG TAB PO SCH (10:00)
[2020-08-14] MEDS ORDERED: CHOLECALCIFEROL (VIT D3) 5,000 UNIT TAB PO SCH (10:00)
== END 2020-08-13 17:02 | disposition home or self-care (01) ==
LOC: ED 23:37 → 3A 08-13 05:43
PROVIDERS: ADMIT Internal Medicine Geriatric Medicine; ATTEND Internal Medicine
DX: U07.1 COVID-19 (principal); R07.89 Other chest pain; I10 Essential (primary) hypertension; I25.10 Atherosclerotic heart disease of native coronary artery without angina pectoris; E11.9 Type 2 diabetes mellitus without complications; R55 Syncope and collapse; R94.5 Abnormal results of liver function studies; M10.9 Gout, unspecified; I25.2 Old myocardial infarction; Z79.4 Long term (current) use of insulin; Z79.82 Long term (current) use of aspirin
CPT/HCPCS: 36415; 70450; 71046; 71275; 80053; 80061; 80074; 82728; 82947; 82962; 83615; 84145; 84484; 85025; 85379; 86140; 87040; 93005; 93880; 96365; 96366; 96368; 96372; 96375; 99285; G0378; J0360; J0456; J0696; J1644; J2405; J2765; Q9967; U0003; 80048; 80320; G0480; J1815